=== PATIENT | female | born 1960 | race Caucasian/White ===

== ENCOUNTER → 2018-04-20 10:15 | Outpatient (CLI) | payer MEDICARE, SELFPAY ==
[2014-01-13 09:30] VITALS: BMI 30.8
[2018-04-20 10:26] LABS: Absolute Lymphocyte Count 0.81 X10^3/ul (0.83-4.51); Absolute Neutrophil Count 3.6 X10^3/uL (2.0-7.7); Basophil# 0.01 X10^3/uL; Basophil% 0.2 % (0-1); Eosinophil# 0.11 X10^3/uL; Eosinophils% 2.3 % (0-5); Hematocrit 37.8 % (37-47); Hemoglobin 11.3 g/dl (12.0-15.0); Lymphocyte # 0.81 X10^3/ul (4.0); Lymphocyte % 16.8 % (19-41); Mean Corp Hgb Conc 29.9 g/gl (32-36); Mean Corpuscular Hgb 25.5 pg (27.0-32.0); Mean Corpuscular Volume 85.1 fL (81-99); Mean Platelet Vol. 9.8 fl (6.2-12.0); Monocyte# 0.29 X10^3/uL; Neutrophil # 3.58 X10^3/uL (2.7-7.7); Neutrophil % 74.5 % (47-70); Platelet Count 150 K/mm3 (150-450); RBC Distribution Width CV 19.3 % (11.6-14.6); RBC Distribution Width SD 60.1 fl (35.1-43.9); Red Blood Count 4.44 M/mm3 (4.2-5.4); White Blood Count 4.8 K/mm3 (4.4-11.0)
[2018-04-20 10:28] LABS: POSITIVE COUNT NO; POSITIVE DIFFERENTIAL NO; POSITIVE MORPHOLOGY NO
== END ==
PROVIDERS: Referring Provider Internal Medicine Hematology & Oncology; Visit Provider Internal Medicine Hematology & Oncology
DX: C20 Malignant neoplasm of rectum (principal)
CPT/HCPCS: 85025

== ENCOUNTER → 2020-03-17 12:42 | Outpatient (CLI) | payer MEDICARE, SELFPAY ==
--- NOTE | 2020-03-17 | IMM_PTH ---
PATIENT: HUONG VALADEZ LOC: U#:[id number] AGE/SX: 64/F ROOM: RE03/17/[address]: Dr. Romie Rosado, : 1960 BED: DIS: SPEC #: [id number] RECD: 03/21/20 13:27 STATUS: SOUT REQ #: [id number] ASTRID: 03/17/20 00:[address]: Romie Rosado DEPT: IMMUNOHISTOCHEMISTRY RECD BY: Florinda Wong ENTERED: 03/21/20 13:29 SP TYPE: IMMUNO OTHR DR: No Primary Care Phys Tissues: THORACIC FLUID Procedures: RCC (add) NAPSIN A (add) Wu Ret (add) CK20 (add) CK5-6 (add) CK7 (add) CK8 (add) PETERSON-2 (add) HEP PAR (add) MACRO (add) LA (add) TTF1 (add) Vimentin (add) Pankeratin (add) P40 (add) CDX2 (add) ER (initial) PHYSICIAN & INSTITUTION [address] [address] SPECIMEN INFORMATION: Tissue Source: Thoracentesis fluid Clinical Info: Pleural effusion Specimen Number: [id number] #1 & 2 CPT code: 84098, 40794 x20 METHODOLOGY: Deparaffinized sections of prefer/formalin-fixed tissue or PAP/DQ stained slides are incubated with monoclonal/polyclonal antibodies/oligonucleotide probes. Localization is made via biotin free immunoperoxidase method. Appropriate controls are performed and reacted as expected. Results on target cell population are indicated in the following table: RESULTS: ANTIBODY / CLONE RESULT Block 1 ER (6F11) negative LA (1E2) negative AE1-3 (AE1/AE3/PCK26) positive CK7 (OV-TL12/30) negative CK8 (95pwicW15) positive CK20 (KS20.8) positive, a few cells PETERSON-2 (SP21) positive Vimentin (V9) negative Macro (HAM-56) negative TTF-1 (8G7G3/1) negative Napsin A (Rabbit Polyclonal) negative HepPar (OCh1E5) negative RCC (PN-15) negative CALRET (polyclonal) negative CK5-6 (D5 & 1684) negative P40 (BC28) negative Block 2 CK7 (OV-TL12/30) negative CK20 (KS20.8) negative PETERSON-2 (SP21) positive TTF-1 (8G7G3/1) negative CDX2 (KUH1972K) positive These tests were developed and their performance characteristics determined by [facility]. They may not have been cleared or approved by the U.S. Food and Drug Administration. The FDA has determined that such clearance or approval is not necessary. The above immunohistochemical/dualISH markers are ordered and reviewed by the Pathologist. INTERPRETATION: Thoracentesis fluid: Malignant cells present derived from metastatic non-small cell carcinoma, favor adenocarcinoma. See comment. SJ:roberto 03/24/20 Comment: IHC profile is compatible with clinical impression of colorectal primary.
--- NOTE | 2020-03-17 | FLU_PTH ---
PATIENT: HUONG VALADEZ LOC: [facility]#:[id number] AGE/SX: 64/F ROOM: RE03/17/[address]: Dr. Romie Rosado DO : 1960 BED: DIS: SPEC #: [id number] RECD: 03/17/20 14:14 STATUS: [place] #: [id number] ASTRID: 03/17/20 00:[address]: Romie Rosado DEPT: CYTOLOGY RECD BY: Dave Suarez ENTERED: 03/20/20 07:20 SP TYPE: Fluid OTHR DR: No Primary Care Phys Tissues: THORACIC FLUID Procedures: Special Stain Group II Surgery Specimen Level IV Cytospin Fluid HEADER OPERATION: Ultrasound-guided left thoracentesis PRE-OP DIAGNOSIS: Pleural effusion TISSUE SUBMITTED: Thoracentesis for cytology DIAGNOSIS CYTOLOGY Thoracentesis for cytology (cytospin and cell block): Malignant cells present derived from metastatic non-small cell carcinoma, favor adenocarcinoma. See comment. JORDAN:roberto 03/21/20 COMMENT Immunohistochemistry ([id number]) supports the above diagnosis and compatible with clinical impression of colorectal primary. This case is discussed with Dr. Rosado on 03/24/20. Case has been reviewed in consultation with Dr. Gil who concurs with the above diagnosis. IDC:AM CYTOLOGY STUDY Slides are reviewed. CYTOLOGY GROSS Received is 85 ml of dark justyn turbid fluid labeled with the patient's name and and designated per the requisition as thoracentesis. Submitted for cytology preparation including cell block x3. / rg 03/20/20 TC:0 CPT: 57350, 15234
[2020-03-17 13:22] LABS: International Normalized Ratio 1.2; Prothrombin Time (Protime)PT. 14.9 SECONDS (11.7-14.9)
--- NOTE | 2020-03-17 13:22 | US_ITS ---
PROCEDURE: ULTRASOUND GUIDED THORACENTESIS. DATE: 03/17/2020. INDICATION: Female, 59 years old. Left pleural effusion. PHYSICIAN: Kip Lyles M.D. PROCEDURE: The risks, benefits, and alternatives to the procedure were explained to the patient. The specific risks of bleeding, infection, and pneumothorax requiring chest tube insertion were discussed and accepted. Written informed consent was obtained. Ultrasonographic evaluation of the left lower pleural space was carried out. An adequate pocket was identified. The patient was placed in the sitting, upright position. The overlying skin was prepped and draped in sterile fashion. 1% lidocaine was administered subcutaneously for local anesthesia. Under ultrasound guidance, a 5 Yi thoracentesis needle/catheter system was advanced into the left posterior lower pleural fluid collection. Approximately 1000 mL of blood tinged fluid was drained. The catheter was removed, and a sterile dressing was applied. A specimen was collected and sent to the laboratory for analysis, as requested by the referring clinician. The patient tolerated the procedure well. A chest x-ray was ordered. US/Thoracentesis W US IMPRESSION: Ultrasound-guided left thoracentesis. Electronically Signed: Kip Lyles, at 14:43 EDT , Service support ,
[2020-03-17 13:23] LABS: Partial Thromboplast Time 27.3 Seconds (24.1-36.2)
[2020-03-17 13:30] VITALS: BP 126/71; BP 147/96; BP 153/100; PULSE 126; PULSE 133; RESP 26; RESP 34; RESP 35; TEMP 36.2; O2SAT 98; O2SAT 99
--- NOTE | 2020-03-17 14:05 | RAD_ITS ---
STUDY: X-RAY CHEST REASON FOR EXAM: Female, 59 years old. POST THORACENTESIS TECHNIQUE: AP portable upright. COMPARISON: None. FINDINGS: The patient is status post left thoracentesis. There is no evidence pneumothorax. Bilateral pulmonary nodules more prominent in the right chest. RAD/Chest Insp/Exp 2 View IMPRESSION: No evidence of pneumothorax on the post left thoracentesis. Bilateral pulmonary nodules worse on the right side Electronically Signed: iKp Lyles, at 9:04 EDT , Service support ,
== END ==
PROVIDERS: Referring Provider Internal Medicine Hematology & Oncology; Visit Provider Internal Medicine Hematology & Oncology
DX: J90 Pleural effusion, not elsewhere classified (principal); C20 Malignant neoplasm of rectum; I81 Portal vein thrombosis; J93.9 Pneumothorax, unspecified; C78.7 Secondary malignant neoplasm of liver and intrahepatic bile duct
CPT/HCPCS: 32555; 36415; 71046; 85610; 85730; 88108; 88305; 88313; 88341; 88342

== ENCOUNTER 2020-04-09 17:19 | Inpatient (IN) | payer MEDICARE, SELFPAY ==
[2020-04-09] VITALS (16 sets, daily range): BP systolic 105–131; BP diastolic 52–93; PULSE 120–149; RESP 24–42; TEMP 36.1–37; O2SAT 95–99; BMI 29.1; BMI 29.3; BMI 29.2
--- NOTE | 2020-04-09 17:29 | EKG12_ITS ---
Test Reason : WEAKNESS Blood Pressure : / mmHG Vent. Rate : 147 BPM Atrial Rate : 147 BPM P-R Int : 126 ms QRS Dur : 084 ms QT Int : 268 ms P-R-T Axes : 045 021 048 degrees QTc Int : 419 ms Sinus tachycardia Otherwise normal ECG Confirmed by CHRISTIN ROCHE, SEAN ([id number]), scientific publications editor TERRENCE BOUDREAUX ([id number]) on 04/10/2020 2:05:06 PM Referred By: AVELINA Confirmed By:SEAN WALLER MD
--- NOTE | 2020-04-09 17:30 | CT_ITS ---
STUDY: CTA CHEST REASON FOR EXAM: Female, 59 years old. SOB X 1 MONTH, DYSPNEA, CURRENT CHEMO FOR RECTAL CA RADIATION DOSAGE (If Supplied By Facility): CTDIvol = ( 11.95 ) mGy, DLP = ( 432.99 ) mGycm TECHNIQUE: The examination was performed with the intravenous administration of IV 100mL Isovue-370. Post-processing of the angiographic images was performed, with multiplanar reformation and 3D reconstruction. Individualized dose optimization techniques were used for this CT. COMPARISON: None. FINDINGS: Normal enhancement of the main pulmonary artery and right and left pulmonary arteries. Normal enhancement of the bilateral peripheral pulmonary arteries. There is no demonstrated pulmonary embolism. Normal thoracic aorta and visualized great vessels. There is no demonstrated aortic dissection. Normal heart and pericardium. Moderate adenopathy of the middle mediastinum with Station 7 subcarinal lymph node measuring 2.6 x 2.7 cm. Right hilar adenopathy measures 1.9 x 2.8 cm on image 155 of series 2. Left hilar adenopathy also identified although less conspicuous as compared to the right. A right paratracheal can mass measures 3.0 x 2.4 cm. Normal hilar regions. There are multiple noncalcified nodules and multiple pulmonary lobes. The largest single nodule is in the right lower lobe measuring 2.0 x 2.3 cm. Some of the nodules extend to the pleural surface. Left larger than right pleural effusions are identified with compressive atelectasis. Normal chest wall structures. There are degenerative changes of thoracic spine. Mild ascites of the upper abdomen incompletely visualized and could account for some omental reticulation, although the latter is nonspecific and can be associated with omental metastasis. Upper abdominal adenopathy is partially visualized. There are multiple masses of the left adrenal gland measuring up to 2.9 cm. There are multiple hepatic masses in the right more than left hepatic lobe with the largest lesion measuring up to 10.5 cm. Some of the masses demonstrate coarse and curvilinear calcifications, incompletely visualized. CT/CTA Chest W/WO Contrast IMPRESSION: 1. No central or segmental pulmonary embolism. 2. Multiple pulmonary nodules/metastases, mediastinal/bilateral hilar adenopathy, hepatic masses, upper abdominal adenopathy, left adrenal gland mass worrisome for metastasis. 3. Left larger than right pleural effusions. Mild ascites. Omental stranding could be related to ascites versus omental metastasis (incompletely visualized). 4. Some of the liver masses demonstrate calcification and can be related to mucinous adenocarcinoma versus chemoembolization. 5. Comparison to prior imaging studies highly recommended to assess for interval change. Electronically Signed: Roberto Zelaya MD (Brooks) at 19:06 EST , Service support ,
--- NOTE | 2020-04-09 17:37 | ED.VIS.GEN ---
History of Present Illness Chief Complaint: Weakness Informant: Patient Onset: Weeks, Month(s) Context: Gradual Onset Timing: Continuous Quality: Dyspnea Location: Respiratory Current Severity: Moderate Maximum Severity: Severe Worsened by: Activity Relieved by: Nothing Associated Symptoms: Diarrhea Narrative: Patient is a 59-year-old woman who was told she had terminal colon/rectal cancer 6 years ago. She states she had a life expectancy of 2 months at that time. She denies black or maroon stool. She states her stool has the color of oatmeal. She denies nausea or vomiting. She reports increased shortness of breath. She had a recent long distance trip and returned on Friday. She denies fever, chills night sweats. She denies rhinorrhea, congestion or postnasal drainage. Denies sore throat. She denies earache, decreased hearing or drainage from her ears. She denies cough. She denies history of PE or DVT. She states she had a thoracentesis performed in the past left side. She has never had a paracentesis. She denies dysuria, frequency, urgency or hematuria. She was unaware that her left lower extremity is swollen. Prior similar symptoms: No Recent Illness/Hospitalization: No - Past Medical History (1) Rectal cancer Status: Acute Past Medical History - Allergies and Home Meds Allergies/Adverse Reactions: Allergies No Known Allergies Allergy (Verified 04/09/20 17:24) Primary Care Physician: Care Physician,No Primary [Primary Care Provider] - Prior records reviewed: Yes Lives: Spouse/ Significant Other Smoking Status: Never smoker Alcohol: None Drugs: None Review of Systems General: Reports: Malaise. Denies: Chills, Fever, Subjective, Sweats, Weight loss Eyes: Denies: Visual changes - bilaterally, Blurred Vision - bilaterally ENT: Denies: Bilateral ear pain, Rhinorrhea, Sore throat Cardiovascular: Denies: Chest pain, Palpitations Respiratory: Reports: Dyspnea, Dyspnea on exertion. Denies: Cough, Sputum, Orthopnea, Paroxysmal nocturnal dyspnea Gastrointestinal: Denies: Abdominal pain, Nausea, Vomiting, Diarrhea Genitourinary: Denies: Dysuria, Hematuria, Frequency Musculoskeletal: Reports: Swelling. Denies: Myalgias, Arthralgias, Neck pain, Back pain, Extremity Pain Skin: Denies: Rash, Wounds Neurological: Denies: Headache, Weakness Endocrine: Denies: Polyuria, Polydipsia Hematologic: Reports: Easy bruising, Easy bleeding - Patient states she is on no anticoagulant. Physical Exam Vital Signs/Narrative: Vital Signs Temp Pulse Resp BP Pulse Ox 04/09/20 17:20 97.0 F L 149 H 36 H 115/52 L 98 Inital Vital Signs reviewed: Yes General: Well nourished, Well developed, Acute Distress Head: Normocephalic, Atraumatic Eyes: Perrl, EOMI. Negative for: Scleral icterus ENT: No rhinorrhea. Negative for: Moist mucous membranes Neck: Supple, Nontender, No lymphadenopathy, No JVD Cardiovascular: Regular rhythm, No murmurs, Normal S1, Normal S2, Tachycardia Respiratory: CTA bilaterally, Chest nontender. Negative for: No distress Abdomen: Soft, Nontender, Nondistended, Normal bowel sounds, Ventral hernia - Midline supraumbilical hernia that is reducible Rectal: Deferred Back: Nontender Extremities: Nontender, - - Swelling of the left leg compared to the right. Bruising is noted.. Negative for: No edema Skin: No rash, No Trauma, Pallor. Negative for: Normal color, Cyanosis, Diaphoresis, Jaundice Neurological: Alert, Oriented x3, Cranial nerves II-XII grossly intact, Normal Strength Psychological: Normal affect Diagnostic/Tx/Re-eval Impressions Chest CTA 04/09/20 17:30 IMPRESSION: 1. No central or segmental pulmonary embolism. 2. Multiple pulmonary nodules/metastases, mediastinal/bilateral hilar adenopathy, hepatic masses, upper abdominal adenopathy, left adrenal gland mass worrisome for metastasis. 3. Left larger than right pleural effusions. Mild ascites. Omental stranding could be related to ascites versus omental metastasis (incompletely visualized). 4. Some of the liver masses demonstrate calcification and can be related to mucinous adenocarcinoma versus chemoembolization. 5. Comparison to prior imaging studies highly recommended to assess for interval change. Electronically Signed: Roberto Zelaya MD ([place]) at 19:06 EST , Service support , 04/09/20 17:30 CTA Chest W/WO Contrast [CT] Stat Laboratory Results 04/09/20 04/09/20 04/09/20 17:50 17:50 17:50 WBC 49.0 H* RBC 4.47 Hgb 11.6 L Hct 38.7 MCV 86.6 MCH 26.0 L MCHC 30.0 L RDW Std Deviation 69.0 H RDW Coeff of Bautista 21.9 H Plt Count 556 H MPV 9.0 Immature Gran % (Auto) 3.100 H Neut % (Auto) 92.9 H Lymph % (Auto) 1.0 L [place] % (Auto) 3.0 Eos % (Auto) 0.0 Baso % (Auto) 0.0 Absolute Neuts (auto) 45.5 H Absolute Lymphs (auto) 0.51 L Nucleated RBC % 0 Differential Comment SEE COMMENTS Diff Path Review May foll Platelet Estimate MOD INC RBC Morphology N CHROM Anisocytosis RARE PT 16.2 H INR 1.4 APTT 30.7 Sodium 134 L Potassium 5.5 H Chloride 102 Carbon Dioxide 20.0 L Anion Gap 12 BUN 23 H Creatinine 1.04 H Estim Creat Clear Calc 51.12 Est GFR (MDRD) Af Amer 69 Est GFR (MDRD) Non-Af 57 L BUN/Creatinine Ratio 22.1 H Glucose 116 H Lactic Acid Calcium 8.6 Troponin I < 0.015 B-Natriuretic Peptide 04/09/20 04/09/20 17:50 18:50 WBC RBC Hgb Hct MCV MCH MCHC RDW Std Deviation RDW Coeff of Bautista Plt Count MPV Immature Gran % (Auto) Neut % (Auto) Lymph % (Auto) Sweet [place] % (Auto) Eos % (Auto) Baso % (Auto) Absolute Neuts (auto) Absolute Lymphs (auto) Nucleated RBC % Differential Comment Diff Path Review Platelet Estimate RBC Morphology Anisocytosis PT INR APTT Sodium Potassium Chloride Carbon Dioxide Anion Gap BUN Creatinine Estim Creat Clear Calc Est GFR (MDRD) Af Amer Est GFR (MDRD) Non-Af BUN/Creatinine Ratio Glucose Lactic Acid 4.0 H* Calcium Troponin I B-Natriuretic Peptide 53.1 Elevated white count, lactate of 4 tachypnea tachycardia patient has symptoms concerning for sepsis. CT reveals ascites was bilateral pleural effusion left greater than right. This may explain her dyspnea. There is no evidence of pulmonary embolus. Once I was made aware of the lactate and white count blood cultures were obtained and she initially was treated with Rocephin since she had respiratory symptoms. After the CT was reviewed by me interpreted radiologist she was treated with Zosyn. Patient was reassessed she does have evidence of a fluid wave. There is mild tenderness but no obvious peritoneal findings. Suspect patient may have spontaneous bacterial peritonitis. In light of the amount of pathology that is noted on the scan a diagnostic paracentesis was not performed. - Medical Decision Making With history of cancer, recent travel tachycardia, tachypnea and left lower extremity swelling concern patient has pulmonary embolus. Appropriate blood work was ordered to assess renal function, electrolytes especially since she reports diarrhea. CBC was obtained since she appears pale. Since breath sounds are noted bilaterally with no rales, rhonchi and no dullness to percussion, will obtain CTA of the chest to evaluate for pulmonary embolus. - Critical Care Time Critical care time (excluding procedures): 30-74 minutes - Care time 34 minutes this included obtaining history, physical, review of prior records, documentation, interpretation of laboratory results and obtaining further diagnostic tests. Treat for sepsis. 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
[2020-04-09 18:21] LABS: Absolute Lymphocyte Count 0.51 X10^3/uL (0.83-4.51); Absolute Neutrophil Count 45.5 X10^3/uL (2.0-7.7); Basophil# 0.02 X10^3/uL; Eosinophil# 0.02 X10^3/uL; Hematocrit 38.7 % (37-47); Hemoglobin 11.6 g/dL (12.0-15.0); Lymphocyte # 0.51 X10^3/ul (4.0); Mean Corpuscular Volume 86.6 fL (81-99); Monocyte# 1.48 X10^3/uL; NRBC Flagged by Analyzer 0 % (0-5); Neutrophil # 45.48 X10^3/uL (2.7-7.7); Neutrophil % 92.9 % (47-70); POSITIVE COUNT YES; POSITIVE DIFFERENTIAL YES; POSITIVE MORPHOLOGY YES; Platelet Count 556 K/mm3 (150-450); RBC Distribution Width CV 21.9 % (11.6-14.6); Red Blood Count 4.47 M/mm3 (4.2-5.4)
[2020-04-09 18:29] LABS: International Normalized Ratio 1.4; Prothrombin Time (Protime)PT. 16.2 SECONDS (11.7-14.9)
[2020-04-09 18:30] LABS: Anion Gap 12 (5-15); BUN 23 mg/dL (7-18); BUN/Creat Ratio 22.1 RATIO (10-20); Calcium,Total 8.6 mg/dL (8.5-10.1); Chloride 102 mmol/L (98-107); Creatinine, Serum 1.04 mg/dL (0.55-1.02); EST Glomerular Filtration Rate 57 mL/min (>60); Est Glom Filt Rate - Afr Amer 69 mL/min (>60); Estimated Creatinine Clearance 51.12 ml/min; Glucose 116 mg/dL (74-106); Partial Thromboplast Time 30.7 Seconds (24.1-36.2); Potassium 5.5 mmol/L (3.5-5.1); Sodium Level 134 mmol/L (136-145)
[2020-04-09 18:37] LABS: Differential Indicated SCAN CRITERIA MET
[2020-04-09 19:25] LABS: Differential Comment SEE COMMENTS
[2020-04-09 19:26] LABS: Anisocytosis RARE; Platelet Estimate MOD INC (ADEQ); Red Cell Morphology N CHROM NORMAL (NORM C&C)
[2020-04-09 19:42] LABS: BNP,B-Type NATRIURETIC PEPTIDE 53.1 pg/mL (0-100)
[2020-04-09] MEDS: 0.9% Normal Saline 1,000 ML 999 ML IV ×3 (20:00→22:28)
--- NOTE | 2020-04-09 20:05 | HP.PCM_ITS ---
Problem List (1) Systemic inflammatory response syndrome (SIRS) Status: Acute (2) Lactic acidosis Status: Acute (3) Bilateral pleural effusion Status: Acute (4) Metastatic cancer Status: Chronic Qualifiers: Area of secondary neoplastic involvement: unspecified site Qualified Code(s): C79.9 - Secondary malignant neoplasm of unspecified site (5) Rectal cancer Status: Chronic History of Present Illness Date of Admission: 04/09/20 Chief Complaint: Dyspnea, worsening, fatigue and malaise. The patient is a 59 y/o F w/ PMHx: CKD stage III, Metastatic Renal Cancer following w/ Dr. Rosado who presents to the [facility] ED on 04/09/20 with increased dyspnea, worse with exertion with concurrent malaise, fatigue prompting ED presentation. Patient notes recent increased stools not specifically diarrhea with associated nausea or emesis but does complain of some mild discomfort on evaluation in the emergency room with abdominal examination. Patient noted recent long trip also and there was concern for possible lung clot and upon ED presentation left lower extremity was noted to be mildly edematous. Patient denies any recent fever, chills, congestion, rhinorrhea, sore throat, cough or any recent ill Covid contacts. Patient has had prior thoracentesis on the left side on 03/17/2020 which was significant for malignant cells derived from metastatic non-small cell carcinoma favorable towards adenocarcinoma per pathology report. Work-up in the ED included T 97, heart rate initially 149, BP 115/52, respiratory rate 36, 90% on room air, CBC with WBC 49, hemoglobin 11.6, platelet 556 with left shift and lymphopenia concurrently, coags with PT 16.2, INR 1.4, PTT 30.7, BMP with sodium 134, potassium 5.5, carbon oxide 20, BUN/creatinine 23/1.04, glucose 116, troponin less than 0.015, lactic acid 4.0, BNP 53.1, blood culture x2 pending per ED, CTA chest with no central or segmental pulmonary embolism, multiple pulmonary nodules/metastases, mediastinal/bilateral hilar adenopathy, hepatic masses, upper abdominal adenopathy, left adrenal gland mass worrisome for metastases, left larger than right pleural effusions with mild ascites, omental stranding possibly ascites versus omental metastases, some liver masses with calcification possibly related to mucinous adenocarcinoma versus chemoembolization with significant change from prior imaging. In the ED patient administered NS, zosyn. Past Medical History Past Medical History (Chronic Problems): Chronic Problems Rectal cancer (Chronic) Metastatic cancer (Chronic) Allergies No Known Allergies Allergy (Verified 04/09/20 17:24) Home Medications: Ambulatory Orders Medication Instructions Recorded Multivitamins,Therapeutic 1 tab PO DAILY 01/12/14 [Multivitamin] Dicyclomine HCl [Bentyl] 10 mg PO Q6H PRN 04/09/20 Oxycodone HCl/Acetaminophen 1 tab PO Q6H PRN PRN 04/09/20 [Percocet 5/325] Regorafenib [Stivarga] 40 mg PO DAILY 04/09/20 Surgical History: - - Tonsillectomy. 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 Smoking Status: Never smoker Tobacco Use: Non-smoker Alcohol: None Drugs: None - *Family History Maternal History Items: Cancer - Mother with a history of colon cancer. Paternal History Items: Heart Disease Review of Systems Constitutional: Reports: Anorexia, Malaise, Weakness, Fatigue. Denies: Chills, Fever, Weight Change HEENT: Denies: Head Aches, Sinus Congestion, Sinus Drainage Cardiovascular: Denies: Chest Pain, Palpitations Respiratory: Reports: Cough, Shortness of Breath, Shortness of breath at rest, Shortness of breath upon exertion. Denies: Sputum production, Wheezing Gastrointestinal: Reports: Abdominal Pain, Nausea. Denies: Constipation, Diarrhea, Vomiting Genitourinary: Denies: Dysuria Musculoskeletal: Reports: Joint Pain, Muscle pain. Denies: Joint Tenderness Skin: Denies: Rash, Wounds Neurological: Denies: Numbness, Tingling, Focal weakness Psychiatric: Denies: Anxiety, Depression, Homicidal Ideations, Suicidal Ideations Hematologic/ Lymphatic: Reports: Anemia. Denies: Easy Bruising, Easy Bleeding VTE Information - Inpt Only VTE Present on Admission: No VTE Mechan Device Prophylaxis: SCD's VTE Pharm Prophylaxis ordered?: No Reason prophylaxis not ordered:: Medical Contraindication - Hold for thoracentesis. Patient Problems: Active and Suspected Problems Systemic inflammatory response syndrome (SIRS) (Acute) Bilateral pleural effusion (Acute) Ascites, malignant (Acute) Malignant neoplasm of rectum metastatic to liver (Acute) Lactic acidosis (Acute) Subjective: Laying in the ED bed, fatigued and ill-appearing, tachypnea present, ongoing tachycardia. Objective: Physical Examination: General: awake, alert, oriented x 3 and cooperative, seated upright in the ED bed, fatigued and ill-appearing. Skin: normal color, turgor, no icterus, cyanosis. HEENT: AT/NC, EOMI, PERRLA, dry MM, no carotid bruits or JVD noted. Lungs: Diminished breath sounds, right greater than left, increased respiratory rate, some accessory muscle usage noted, no obvious rales, rhonchi or wheezing. Heart: Tachycardic with regular rhythm; no gallop, rub audible. Abdomen: soft, mildly distended which she notes is stable, some discomfort to palpation in all quadrants, some firmness in the right upper quadrant, distant normal bowel sounds, HM. Extremities: no cyanosis, clubbing, or edema. Neurological: patient awake, alert, oriented as noted; cognitive function intact; pupils equally reactive to light and accomodation; cranial nerves II-XII grossly normal, moving all 4 extremities, no focal deficits, strength severely global decrease secondary to acute presentation. Psychiatric: affect appears fatigued, ill-appearing, no acute evidence of depressive or anxiety feelings. - Physical Exam Vitals/I&O's: Vital Signs Temp Pulse Resp BP Pulse Ox 98.3 F 133 H 26 H 105/93 H 96 04/09/20 18:53 04/09/20 20:01 04/09/20 20:01 04/09/20 20:01 04/09/20 20:01 Oxygen Delivery Method Room Air Weight: 176 lb 9.444 oz Body Mass Index (BMI) 29.3 Intake and Output for Last 24 Hours 04/07/20 04/08/20 04/09/20 23:59 23:59 23:59 Intake Total 290 / 290 Balance 290 / 290 Laboratory Results 04/09/20 17:50: WBC 49.0 H*, RBC 4.47, Hgb 11.6 L, Hct 38.7, MCV 86.6, MCH 26.0 L, MCHC 30.0 L, RDW Std Deviation 69.0 H, RDW Coeff of Bautista 21.9 H, Plt Count 556 H, MPV 9.0, Immature Gran % (Auto) 3.100 H, Neut % (Auto) 92.9 H, Lymph % (Auto) 1.0 L, Edgar % (Auto) 3.0, Eos % (Auto) 0.0, Baso % (Auto) 0.0, Absolute Neuts (auto) 45.5 H, Absolute Lymphs (auto) 0.51 L, Nucleated RBC % 0, Differential Comment SEE COMMENTS, Diff Path Review May foll, Platelet Estimate MOD INC, RBC Morphology N CHROM, Anisocytosis RARE 04/09/20 17:50: PT 16.2 H, INR 1.4, APTT 30.7 04/09/20 17:50: Sodium 134 L, Potassium 5.5 H, Chloride 102, Carbon Dioxide 20.0 L, Anion Gap 12, BUN 23 H, Creatinine 1.04 H, Estim Creat Clear Calc 51.12, Est GFR (MDRD) Af Amer 69, Est GFR (MDRD) Non-Af 57 L, BUN/Creatinine Ratio 22.1 H, Glucose 116 H, Calcium 8.6, Troponin I < 0.015 04/09/20 17:50: B-Natriuretic Peptide 53.1 04/09/20 18:50: Lactic Acid 4.0 H* Current Medications Piperacillin Sod/Tazobactam (Sod 4.5 gm/ Sodium Chloride) 100 mls @ 200 mls/hr IV X1 ONE Stop: 04/09/20 20:11 Last Admin: 04/09/20 20:00 Dose: 200 mls/hr Documented by: Sodium Chloride () 1,000 mls @ 999 mls/hr IV .Q1H1M SAM; Protocol Stop: 04/09/20 22:25 Last Admin: 04/09/20 20:00 Dose: 999 mls/hr Documented by: Assessment/Plan All Active Problems Systemic inflammatory response syndrome (SIRS) (Acute) Bilateral pleural effusion (Acute) Ascites, malignant (Acute) Malignant neoplasm of rectum metastatic to liver (Acute) Lactic acidosis (Acute) The patient is a 59 y/o F w/ PMHx: CKD stage III, Metastatic Renal Cancer following w/ Dr. Rosado who presents to the [facility] ED on 04/09/20 with increased dyspnea, worse with exertion with concurrent malaise, fatigue prompting ED presentation. Patient notes recent increased stools not specifically diarrhea wi th associated nausea or emesis but does complain of some mild discomfort on evaluation in the emergency room with abdominal examination. 1. SIRS with Lactic Acidosis, Unclear Etiology: Patient presentation concerning for possible infection with significant lactic acidosis, tachycardia, leukocytosis with left shift therefore to be cautious given appearance per discussion with ED physician will admit to the ICU, maintain on telemetry monitoring, request laminator preforms involvement, pending oncology evaluation, trend LA, judiciously hydrate, maintain on broad-spectrum antibiotic therapy with vancomycin and Zosyn with de-escalation once appropriate, continue planned thoracentesis as noted #2, repeat CBC, CMP in a.m., obtain urinalysis. CTPA with no obvious infiltrate. Blood culture x2 pending per ED. 2. Dyspnea, multifactorial secondary to Metastatic cancer (#3) and recurrent L sided Pleural effusion: Recent 03/17/2020 left-sided thoracentesis, recurrent effusion, positive for malignant cells at that time, will repeat thoracentesis is likely will assist patient with recent complaint of recurrent dyspnea, maintain n.p.o. status after midnight, will send for culture as possibly related with #1. 3. Metastatic colon cancer: CTA chest with no central or segmental pulmonary embolism, multiple pulmonary nodules/metastases, mediastinal/bilateral hilar adenopathy, hepatic masses, upper abdominal adenopathy, left adrenal gland mass worrisome for metastases, left larger than right pleural effusions with mild ascites, omental stranding possibly ascites versus omental metastases, some l iver masses with calcification possibly related to mucinous adenocarcinoma versus chemoembolization with significant change from prior imaging. Abdominal examination with some firmness to the right upper quadrant and mild discomfort therefore will obtain CT abdomen and pelvis although will be without contrast given already recent IV usage but suspect significantly worsening metastatic disease. Dr. Rosado consulted and pending. Will request magnesium and phosphorus levels and supplement if appropriate. We will continue patient home Stivarga regimen. 4. Elevated LFTs: Admission total bilirubin 1.20, direct bilirubin 0.75, AST/ALT 48/20, alk phos 654, pending CT abdomen and pelvis but do suspect worsening metastatic disease as likely etiology as well as acute presentation #1. We will plan repeat CMP in a.m. 5. Chronic Kidney Disease Stage III: Admission BUN/Cr 23/1.04, baseline renal function similar, repeat BMP in AM. 6. Hyperkalemia, mild: Admission potassium 5.5, no evidence of analysis, judiciously hydrating with repeat CMP in a.m. 7. Chronic anemia: Admission hemoglobin 11.6, previously 11, stable, trend. 8. DVT prophylaxis: SCDs, hold chemoprophylaxis for planned a.m. thoracentesis. 9. CODE status: Patient RAS is Michael Portillo one of her sons and living will is not in place per her report. Discussed CODE status at length including difference between FULL code, DNR-CCA and DNR-CC status. Following discussions about the differences in these status, requested DNR CCA, no intubation status. Patient is a [employer] and will not take any blood products. Advanced Care Planning Face to Face Time: 16 minutes. Inpatient E&M: 00917 Init Hosp L3 Procedures: [id number] Advncd Care Plan 30 Min
[2020-04-09 22:31] LABS: AST(SGOT) 48 U/L (15-37); Alanine Aminotransfer ALT/SGPT 20 U/L (13-56); Albumin, Serum 1.7 g/dL (3.2-5.0); Alkaline Phosphatase 654 U/L (45-117); Bilirubin, Direct 0.75 mg/dL (0.00-0.30); Globulin 5.1 g/dL (2.2-4.2); Lipase 17 U/L (73-393); Magnesium 2.3 mg/dL (1.6-2.6); Protein, Total 6.8 g/dL (6.4-8.2)
[2020-04-09 22:35] LABS: Phosphorus 3.6 mg/dL (2.5-4.9)
[2020-04-09 22:57] LABS: Reflex Lactate? Y
[2020-04-09] MEDS: Morphine 2 MG/ML Syringe IV (23:15)
[2020-04-09] MEDS: 0.9% Normal Saline 1,000 ML 125 ML IV (23:22)
--- NOTE | 2020-04-09 23:35 | PCM.RX.CS ---
Consult Pharmacy has been consulted to manage selected antiobiotic: Vancomycin Type of Consult: New start Suspected Infection: Sepsis, Pneumonia Labs: Sodium 134 mmol/L (136-145) L 04/09/20 17:50 Potassium 5.5 mmol/L (3.5-5.1) H 04/09/20 17:50 Chloride 102 mmol/L (98-107) 04/09/20 17:50 Carbon Dioxide 20.0 mmol/L (21.0-32.0) L 04/09/20 17:50 Anion Gap 12 (5-15) 04/09/20 17:50 BUN 23 mg/dL (7-18) H 04/09/20 17:50 Creatinine 1.04 mg/dL (0.55-1.02) H 04/09/20 17:50 Est GFR (MDRD) Af Amer 69 mL/min (>60) 04/09/20 17:50 Est GFR (MDRD) Non-Af 57 mL/min (>60) L 04/09/20 17:50 BUN/Creatinine Ratio 22.1 RATIO (10-20) H 04/09/20 17:50 Glucose 116 mg/dL (74-106) H 04/09/20 17:50 Goal Trough: 15-20 mcg/mL Pharmacy Plan for Drug Dosing: Pharmacy Service will continue to monitor and adjust dosing as required. Medications Vancomycin HCl 750 mg/ Sodium (Chloride) 265 mls @ 250 mls/hr IV Q12H SAM Vancomycin HCl 2,000 mg/ (Sodium Chloride) 540 mls @ 250 mls/hr IV X1 ONE Stop: 04/10/20 00:39 Last Admin: 04/09/20 22:42 Dose: 250 mls/hr Documented by: Follow-Up Labs: Trough Vancomycin Labs to be done on [date and time ordered]: 04/11 @ 1032
[2020-04-09 23:37] LABS: Color, Urine Yellow (Yellow); Glucose, Dipstick Normal (Normal); Ketone-Dipstick Negative (Negative); Leukocyte Esterase-Dipstick 100 /ul (Negative); Mucous, Urine 0 SEEN /hpf (<or=2+); Nitrite-Dipstick Negative (Negative); Occult Blood-Urine 10 /ul (Negative); Protein-Dipstick 30 mg/dl (Negative); Specific Gravity, Urine 1.005 (1.002-1.030); Urine Bilirubin Dipstick Negative (Negative); Urine Clarity Clear (Clear); Urine Urobilinogen 1 mg/dl (Normal)
[2020-04-09 23:48] LABS: Bacteria 1+ /hpf (None Seen); Red Blood Cells-Urine 0-5 SEEN /hpf (0-5); Squamous Epithelial Cells - UA 5-10 SEEN /hpf (5-10); Transitional Epithelial - Ur 0-5 SEEN /hpf (0-5); White Blood Cells 10-25 SEEN /hpf (0-5)
[2020-04-09 23:54] LABS: Procalcitonin 1.18 ng/mL (0.00-0.09)
[2020-04-10] VITALS (31 sets, daily range): BP systolic 101–159; BP diastolic 70–117; PULSE 123–138; RESP 23–44; TEMP 36.1–37.8; O2SAT 96–100
[2020-04-10] LABS: ALB/GLOB Ratio 0.4 RATIO (0.9-2.4); Globulin 3.5 g/dL (2.2-4.2); LDH 639 U/L (84-246); Protein, Total 4.8 g/dL (6.4-8.2)
--- NOTE | 2020-04-10 | IMM_PTH ---
PATIENT: HUONG VALADEZ LOC: ICU U#:[id number] AGE/SX: 59/F ROOM: [place] [address] RE04/09/[address]: Dr. Franklin Mason DO : 1960 BED: 1 DIS: 04/11/2020 SPEC #: [id number] RECD: 04/11/20 13:21 STATUS: SOUMaria Luisa REQ #: [id number] ASTRID: 04/10/20 00:[address]: Franklin Mason DEPT: IMMUNOHISTOCHEMISTRY RECD BY: Florinda Wong ENTERED: 04/11/20 13:24 SP TYPE: IMMUNO OTHR DR: MD Dr. Harmeet Tabor, DO Dr. Daniel Greenwood, MD Dr. Romie Turner Dr., DO No Primary Care Phys Tissues: PARACENTESIS FLUID Procedures: RCC (add) NAPSIN A (add) Wu Ret (add) CK20 (add) CK5-6 (add) CK7 (add) CK8 (add) PETERSON-2 (add) HEP PAR (add) MACRO (add) WI (add) TTF1 (add) Vimentin (add) Pankeratin (add) P40 (add) CDX2 (add) ER (initial) PHYSICIAN & [place] [address] SPECIMEN INFORMATION: Tissue Source: Paracentesis fluid Clinical Info: Ascites Specimen Number: [id number] CPT code: 66148, 09698 x16 METHODOLOGY: Deparaffinized sections of prefer/formalin-fixed tissue or PAP/DQ stained slides are incubated with monoclonal/polyclonal antibodies/oligonucleotide probes. Localization is made via biotin free immunoperoxidase method. Appropriate controls are performed and reacted as expected. Results on target cell population are indicated in the following table: RESULTS: ANTIBODY / CLONE RESULT ER (6F11) negative WI (1E2) negative AE1-3 (AE1/AE3/PCK26) positive CK7 (OV-TL12/30) negative CK8 ([id number]) positive CK20 (KS20.8) positive, rare cells PETERSON-2 (SP21) positive CDX2 ([id number]) positive Vimentin (V9) negative Macro (HAM-56) negative TTF-1 (8G7G3/1) negative Napsin A (Rabbit Polyclonal) negative HepPar (OCh1E5) negative RCC (PN-15) negative CALRET (polyclonal) negative CK5-6 (D5 & 1684) negative P40 (BC28) negative These tests were developed and their performance characteristics determined by [facility]. They may not have been cleared or approved by the U.S. Food and Drug Administration. The FDA has determined that such clearance or approval is not necessary. The above immunohistochemical/dualISH markers are ordered and reviewed by the Pathologist. INTERPRETATION: Paracentesis fluid: Malignant cells present derived from metastatic non-small cell carcinoma, favor adenocarcinoma. See comment. JORDAN:roberto 04/12/20 Comment: IHC profile is compatible with clinical impression of colorectal primary.
[2020-04-10 00:07] LABS: Lactic Acid 2.5 mmol/L (0.4-1.9)
[2020-04-10] MEDS: 0.9% Normal Saline 1,000 ML 999 ML IV (01:44)
[2020-04-10 02:20] LABS: M R Staph aureus DNA By PCR Negative (Negative); Probe Check PASS; Specimen Processing Control PASS
[2020-04-10] MEDS: oxyCODONE 5 MG Tablet PO (03:00)
[2020-04-10 04:23] LABS: Absolute Lymphocyte Count 0.36 X10^3/uL (0.83-4.51); Absolute Neutrophil Count 43.6 X10^3/uL (2.0-7.7); Basophil# 0.16 X10^3/uL; Basophil% 0.3 % (0-1); Eosinophils% 0.2 % (0-5); Hematocrit 34.4 % (37-47); Hemoglobin 10.2 g/dL (12.0-15.0); Lymphocyte # 0.36 X10^3/ul (4.0); Lymphocyte % 0.8 % (19-41); Mean Corp Hgb Conc 29.7 g/dL (32-36); Mean Corpuscular Volume 87.5 fL (81-99); Monocyte# 1.28 X10^3/uL; Monocyte% 2.8 % (0-10); NRBC Flagged by Analyzer 0 % (0-5); Neutrophil # 43.64 X10^3/uL (2.7-7.7); Neutrophil % 93.9 % (47-70); POSITIVE COUNT YES; POSITIVE DIFFERENTIAL YES; POSITIVE MORPHOLOGY YES; Platelet Count 403 K/mm3 (150-450); RBC Distribution Width SD 70.1 fl (35.1-43.9); Red Blood Count 3.93 M/mm3 (4.2-5.4)
[2020-04-10 04:29] LABS: Differential Indicated SCAN CRITERIA MET; White Blood Count 46.5 K/mm3 (4.4-11.0)
[2020-04-10 04:57] LABS: ALB/GLOB Ratio 0.3 RATIO (0.9-2.4); AST(SGOT) 46 U/L (15-37); Alanine Aminotransfer ALT/SGPT 18 U/L (13-56); Albumin, Serum 1.4 g/dL (3.2-5.0); Alkaline Phosphatase 518 U/L (45-117); Anion Gap 10 (5-15); BUN 18 mg/dL (7-18); BUN/Creat Ratio 28.3 RATIO (10-20); Chloride 110 mmol/L (98-107); Creatinine, Serum 0.64 mg/dL (0.55-1.02); EST Glomerular Filtration Rate 101 mL/min (>60); Est Glom Filt Rate - Afr Amer 122 mL/min (>60); Estimated Creatinine Clearance 83.06 ml/min; Globulin 4.1 g/dL (2.2-4.2); Glucose 90 mg/dL (74-106); Potassium 4.6 mmol/L (3.5-5.1); Protein, Total 5.5 g/dL (6.4-8.2); Sodium Level 137 mmol/L (136-145)
[2020-04-10 05:54] LABS: Differential Comment SCANNED; Hypochromasia RARE; Ovalocyte RARE; Stomatocyte RARE
--- NOTE | 2020-04-10 05:55 | RAD_ITS ---
HISTORY: SOB ADDITIONAL HISTORY: None provided. EXAMINATION/TECHNIQUE: XR Chest 1 View AP/PA Number of images including paperwork: 1 COMPARISON: 03/07/2020. CT 04/09/2020 FINDINGS: LUNGS AND PLEURA: Bilateral pleural effusions, small on the right and moderate on the left. Associated left basilar atelectasis versus infiltrate. Bilateral lung nodules consistent with metastases. CARDIAC SILHOUETTE: Stable. MEDIASTINUM AND CASI: Right paratracheal fullness consistent with adenopathy has increased compared to 03/17/2020. UPPER ABDOMEN: Unremarkable. SKELETON AND SOFT TISSUES: No acute skeletal findings. OTHER DEVICES AND HARDWARE: None. RAD/Chest 1 View (Portable) IMPRESSION: 1. Bilateral pleural effusions. 2. Left basilar atelectasis versus infiltrate. 3. Bilateral lung nodules and right paratracheal adenopathy consistent with metastatic disease. at 0149 Reported and signed by: Michelle Myrick MD Electronically Signed: Michelle Myrick MD at 1:49 EST Tel , Service support ,
[2020-04-10] MEDS: Menthol/Lanolin/Calamine/Znox 113 GM Tube 1 APPLIC TOPICAL ×4 (06:21→20:31)
[2020-04-10] MEDS: 0.9% Normal Saline 1,000 ML 125 ML IV ×2 (06:22→15:15)
--- NOTE | 2020-04-10 07:49 | PCM.CON.CC ---
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 on 04/09/2020 secondary to progressive shortness of breath. Patient reportedly had recently taken a long distance trip and returned on Friday. Patient has reported progressive abdominal distention over this period of time also, but is unclear on which developed first. Patient denied any fevers, chills or night sweats. Patient had not had any URI type symptoms such as rhinorrhea, congestion or postnasal drainage. Patient denied any cough and does not have any history of PE or DVT. Patient has had a thoracentesis in the past, but never required a paracentesis. Patient did not note lower extremity edema. In the ER, there was significant concern for pulmonary embolism. Patient did have a CT of the chest showing bilateral pleural effusions and multiple metastatic lesions. Patient was initiated on antibiotic therapy. On physical exam, patient reportedly had a fluid wave, but a paracentesis was not attempted. Patient was noted to have a significant leukocytosis of 49,000, platelet count of 556 and elevated potassium at 5.5. Lactate was elevated at 4 and BNP was 53. Patient was admitted to the intensive care unit for further evaluation. Since being in the intensive care unit, patient has had a CT of the abdomen. Results are below. Surgery has been consulted, but is not evaluated the patient at the time of my evaluation. Patient overall feels her dyspnea is relatively unchanged. Patient was placed in a Trendelenburg position with some improvement in dyspnea. Patient does report that she has had a thoracentesis previously secondary to pleural effusion, but is unclear if this was related to cancer. Patient states that she would not want her aerobic measures at this time. Patient states that cancer is everywhere and only wants to do things that may make things better. Patient knows Dr. Hughes from previous interventions and is willing to listen to his recommendations. Review of systems otherwise negative from a constitutional, HEENT, respiratory, cardiovascular, GI, genitourinary, musculoskeletal, skin, neurologic, psychiatric and hematologic system unless stated above. Past Medical History Past Medical History (Chronic Problems): Chronic Problems Rectal cancer (Chronic) Metastatic cancer (Chronic) Allergies No Known Allergies Allergy (Verified 04/09/20 17:24) Home Medications: Ambulatory Orders Medication Instructions Recorded Multivitamins,Therapeutic 1 tab PO DAILY 01/12/14 [Multivitamin] Dicyclomine HCl [Bentyl] 10 mg PO Q6H PRN 04/09/20 Oxycodone HCl/Acetaminophen 1 tab PO Q6H PRN PRN 04/09/20 [Percocet 5/325] Regorafenib [Stivarga] 40 mg PO DAILY 04/09/20 Surgical History: - - Tonsillectomy. Psychiatric History: No pertinent psych hx [employer] History: No pertinent [employer] history Lives: With Family - Patient notes that she is at home and 2 of her sons live with her. Smoking Status: Never smoker Tobacco Use: Non-smoker Alcohol: None Drugs: None - *Family History Maternal History Items: Cancer - Mother with a history of colon cancer. 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 CT scan of the chest shows multiple metastatic lesions, some pleural-based with associated pleural effusions. - Physical Exam Vitals/I&O's: Vital Signs Temp Pulse Resp BP Pulse Ox 36.6 C 124 H 30 H 118/86 H 96 04/10/20 04:00 04/10/20 07:00 04/10/20 07:00 04/10/20 07:00 04/10/20 07:00 Oxygen Delivery Method Room Air Weight: 82.9 kg Body Mass Index (BMI) 29.2 Intake and Output for Last 24 Hours 04/08/20 04/09/20 04/10/20 23:59 23:59 23:59 Intake Total 3390 / 3390 2415 / 2415 Output Total 150 / 150 350 / 350 Balance 3240 / 3240 2064 General: Alert, Oriented x3, Cooperative, No apparent distress, - HEENT: Atraumatic, PERRLA, EOMI, Normocephalic, - - Slight temporal wasting Oral: Moist Mucosa, No Gingival or Mucosal Lesions/ Ulcerations Neck: Supple, No Nodes, Trachea Midline, JVD, Right Lungs: No rhonchi, No wheeze, No rales, Diminished - Bilateral, - - Dullness to percussion at both bases Cardiovascular: Normal S1, Normal S2, No murmurs, No rub noted, No Gallop, Tachycardic, - - Sinus tachycardia noted on telemetry Abdomen: Bowel Sounds Present, Soft, Distended, - - Fluid wave noted Extremities: No clubbing, No cyanosis, No edema Skin: Rash Present - Perineal Musculoskeletal: No Tenderness to Palpation of Joints or Extremities Lymphatic: No Cervical, Supraclavicular, or Inguinal Adenopathy Neurological: Cranial nerves II-XII grossly intact, Neuro grossly intact, Motor Exam 5/5 strength throughout Psych/Mental Status: Alert and oriented to time, place, person, mood and affect Microbiology Past 72 Hours 04/09/20 21:45 Mucosa - Nasopharyngeal Respiratory Syncytial Virus Ag Scrn - Final 04/09/20 21:45 Mucosa - Nasopharyngeal Respiratory Panel (PCR) - Final 04/09/20 22:45 Urine, Clean Catch Legionella Antigen - Final 04/09/20 22:45 Urine, Clean Catch Streptococcus pneumoniae Antigen (M - Final Streptococcus pneumonia Ag 04/09/20 18:45 Blood Culture (Wb) - Anticubital Left Blood Culture - Preliminary Laboratory Results 04/09/20 17:50: WBC 49.0 H*, RBC 4.47, Hgb 11.6 L, Hct 38.7, MCV 86.6, MCH 26.0 L, MCHC 30.0 L, RDW Std Deviation 69.0 H, RDW Coeff of Bautista 21.9 H, Plt Count 556 H, MPV 9.0, Immature Gran % (Auto) 3.100 H, Neut % (Auto) 92.9 H, Lymph % (Auto) 1.0 L, [place] % (Auto) 3.0, Eos % (Auto) 0.0, Baso % (Auto) 0.0, Absolute Neuts (auto) 45.5 H, Absolute Lymphs (auto) 0.51 L, Nucleated RBC % 0, Differential Comment SEE COMMENTS, Diff Path Review Milena foll, Platelet Estimate MOD INC, RBC Morphology N CHROM, Anisocytosis RARE 04/09/20 17:50: PT 16.2 H, INR 1.4, APTT 30.7 04/09/20 17:50: Sodium 134 L, Potassium 5.5 H, Chloride 102, Carbon Dioxide 20.0 L, Anion Gap 12, BUN 23 H, Creatinine 1.04 H, Estim Creat Clear Calc 51.12, Est GFR (MDRD) Af Amer 69, Est GFR (MDRD) Non-Af 57 L, BUN/Creatinine Ratio 22.1 H, Glucose 116 H, Calcium 8.6, Troponin I < 0.015 04/09/20 17:50: B-Natriuretic Peptide 53.1 04/09/20 17:50: Magnesium 2.3, Total Bilirubin 1.20 H, Direct Bilirubin 0.75 H, AST 48 H, ALT 20, Alkaline Phosphatase 654 H, Total Protein 6.8, Albumin 1.7 L, Globulin 5.1 H, Lipase 17 L 04/09/20 17:50: Phosphorus 3.6 04/09/20 18:50: Lactic Acid 4.0 H* 04/09/20 22:00: MRSA (PCR) Negative 04/09/20 22:30: Procalcitonin 1.18 H 04/09/20 22:45: Urine Color Yellow, Urine Clarity Clear, Urine pH 5.0, Ur Specific [place] 1.005, Urine Protein 30 H, Urine Glucose (UA) Normal, Urine Ketones Negative, Urine Occult Blood 10 H, Urine Nitrite Negative, Urine Bilirubin Negative, Urine Urobilinogen 1 H, Ur Leukocyte Esterase 100 H, Urine RBC 0-5 SEEN, Urine WBC 10-25 SEEN, Ur Squamous Epith Cells 5-10 SEEN, Ur Transition Epith Cell 0-5 SEEN, Urine Bacteria 1+, Urine Mucus 0 SEEN 04/09/20 23:10: Lactate Dehydrogenase 639 H, Total Protein 4.8 L, Globulin 3.5, Albumin/Globulin Ratio 0.4 L 04/09/20 23:10: Lactic Acid 2.5 H* 04/10/20 04:15: WBC 46.5 H*, RBC 3.93 L, Hgb 10.2 L, Hct 34.4 L, MCV 87.5, MCH 26.0 L, MCHC 29.7 L, RDW Std Deviation 70.1 H, RDW Coeff of Bautista 22.0 H, Plt Count 403, MPV 9.0, Immature Gran % (Auto) 2.000 H, Neut % (Auto) 93.9 H, Lymph % (Auto) 0.8 L, [place] % (Auto) 2.8, Eos % (Auto) 0.2, Baso % (Auto) 0.3, Absolute Neuts (auto) 43.6 H, Absolute Lymphs (auto) 0.36 L, Nucleated RBC % 0, Differential Comment SCANNED, Diff Path Review May foll, Hypochromasia RARE, Ovalocytes RARE, Stomatocytes RARE 04/10/20 04:15: Sodium 137, Potassium 4.6, Chloride 110 H, Carbon Dioxide 17.0 L, Anion Gap 10, BUN 18, Creatinine 0.64, Estim Creat Clear Calc 83.06, Est GFR (MDRD) Af Amer 122, Est GFR (MDRD) Non-Af 101, BUN/Creatinine Ratio 28.3 H, Glucose 90, Calcium 7.0 L, Total Bilirubin 1.10 H, AST 46 H, ALT 18, Alkaline Phosphatase 518 H, Total Protein 5.5 L, Albumin 1.4 L, Globulin 4.1, Albumin/Globulin Ratio 0.3 L Current Medications Acetaminophen (Acetaminophen 325 Mg Tablet) 650 mg PO Q6H PRN PRN PRN Reason: Pain Score 1-10/Temp > 100.7 F Al Hydroxide/Mg Hydroxide (Mag Hydrox/Al Hydrox/Simeth 30 Ml Udc) 30 ml PO Q6H PRN PRN PRN Reason: Gastric Burning Albuterol Sulfate (Albuterol 2.5 Mg/3 Ml Vial.Neb.) 2.5 mg INHALATION Q2H PRN PRN PRN Reason: Dyspnea, wheezing Calamine/Phenol (Menthol/Lanolin/Calamine/Znox 113 Gm Tube) 1 applic TOPICAL TID [facility]; Protocol Last Admin: 04/10/20 06:21 Dose: 1 applicatio Documented by: Dicyclomine HCl (Dicyclomine 10 Mg Capsule) 10 mg PO Q6H PRN PRN PRN Reason: abd pain Guaifenesin (Guaifenesin 10 Ml Udc (200mg/10ml)) 10 ml PO Q4H PRN PRN PRN Reason: COUGH Hydralazine HCl (Hydralazine 20 Mg/Ml Vial) 10 mg IV Q4H PRN PRN PRN Reason: SBP > 160 Sodium Chloride () 1,000 mls @ 125 mls/hr IV .Q8H [facility] Last Admin: 04/10/20 06:22 Dose: 125 mls/hr Documented by: Piperacillin Sod/Tazobactam (Sod 3.375 gm/ Sodium Chloride) 50 mls @ 12.5 mls/hr IV Q8 [facility] Last Admin: 04/10/20 06:21 Dose: 12.5 mls/hr Documented by: Vancomycin IV Pharmacy to Dose (1 ea/ Sodium Chloride) 500 mls @ 250 mls/hr IV X1 PRN; Protocol PRN Reason: Rx to Dose Sodium Chloride () 250 mls @ 15 mls/hr IV .[id number] PRN PRN Reason: Saline Flush Sodium Chloride () 250 mls @ 15 mls/hr IV .[id number] PRN PRN Reason: Additional IVPB Infusion Vancomycin HCl 750 mg/ Sodium (Chloride) 265 mls @ 250 mls/hr IV Q12H [facility] Magnesium Hydroxide (Magnesium Hydroxide 30 Ml Udc) 30 ml PO DAILY PRN PRN PRN Reason: Constipation Melatonin (Melatonin 3 Mg Tablet) 3 mg PO QHS PRN PRN PRN Reason: INSOMNIA Morphine Sulfate (Morphine 2 Mg/Ml Syringe) 2 mg IV Q3H PRN PRN PRN Reason: Pain Score 6-10 Last Admin: 04/09/20 23:15 Dose: 2 mg Documented by: Nitroglycerin (Nitroglycerin (Inpatient Use) 0.4 Mg Tab.Subl) 0.4 mg SUBLINGUAL Q5M PRN PRN Reason: CARDIAC/CHEST PAIN Non-Formulary Medication (Regorafenib [Stivarga]) 40 mg PO DAILY [facility] Ondansetron HCl (Ondansetron 4 Mg/2 Ml Vial) 4 mg IV Q8H PRN PRN PRN Reason: NAUSEA/VOMITING Oxycodone HCl (Oxycodone 5 Mg Tablet) 5 mg PO Q4H PRN PRN PRN Reason: Pain Score 4-5 Last Admin: 04/10/20 03:00 Dose: 5 mg Documented by: Prochlorperazine Edisylate (Prochlorperazine 10 Mg/2 Ml Vial) 5 mg IV Q4H PRN PRN PRN Reason: Breakthrough Nausea/Vomiting Psyllium Hydrophilic Mucilloid (Psyllium 1 Packet) 1 packet PO DAILY PRN PRN PRN Reason: Constipation Senna/Docusate Sodium (Senna/Docusate Sodium 1 Tablet) 2 tablet PO BID PRN PRN PRN Reason: Constipation Sodium Chloride (0.9% Saline Lock 10 Ml Syringe) 10 - 40 ml IV UD PRN PRN Reason: SALINE FLUSH Throat Lozenges (Benzocaine/Menthol 1 Lozenge) 1 lozenge MUCOUS MEM Q2H PRN PRN PRN Reason: SORE THROAT Clinical Impression(s) from Imaging Studies Chest CTA 04/09/20 17:30 IMPRESSION: 1. No central or segmental pulmonary embolism. 2. Multiple pulmonary nodules/metastases, mediastinal/bilateral hilar adenopathy, hepatic masses, upper abdominal adenopathy, left adrenal gland mass worrisome for metastasis. 3. Left larger than right pleural effusions. Mild ascites. Omental stranding could be related to ascites versus omental metastasis (incompletely visualized). 4. Some of the liver masses demonstrate calcification and can be related to mucinous adenocarcinoma versus chemoembolization. 5. Comparison to prior imaging studies highly recommended to assess for interval change. Electronically Signed: Roberto Zelaya MD ([place]) at 19:06 EST , Service support , Chest X-Ray 04/10/20 05:55 IMPRESSION: 1. Bilateral pleural effusions. 2. Left basilar atelectasis versus infiltrate. 3. Bilateral lung nodules and right paratracheal adenopathy consistent with metastatic disease. at 0149 Reported and signed by: Michelle Myrick MD Electronically Signed: Michelle Myrick MD at 1:49 EST Tel , Service support , Abdomen/Pelvis CT 04/10/20 21:49 IMPRESSION: 1. Irregular contour of the rectum with gas in the perirectal space and extending into the right gluteal region with right gluteal air fluid collection concerning for developing abscess. 2. Rectal thickening and perirectal nodularity compatible with a provided history of rectal cancer with evidence of metastatic disease as detailed above. 3. Bilateral pleural effusions. 4. Additional findings above. Individualized dose optimization techniques were used for this CT. at 0113 Reported and signed by: Michelle Myrick MD Electronically Signed: Michelle Myrick MD at 1:13 EST Tel , Service support , ADDENDUM: 04/10/20128 IMPRESSION: 1. Irregular contour of the rectum with gas in the perirectal space and extending into the right gluteal region with right gluteal air fluid collection concerning for developing abscess. 2. Rectal thickening and perirectal nodularity compatible with a provided history of rectal cancer with evidence of metastatic disease as detailed above. 3. Bilateral pleural effusions. 4. Additional findings above. Individualized dose optimization techniques were used for this CT. at 0113 Reported and signed by: Michelle Myrick MD N.B. : The above information has been verbally conveyed by Michelle Myrick MD to Patti Amaya RN, on 04/10/2020 01:22:11 (ET). Electronically Signed: Michelle Myrick MD at 1:13 EST Tel , Service support , ADDENDUM: 04/10/20128 IMPRESSION: 1. Irregular contour of the rectum with gas in the perirectal space and extending into the right gluteal region with right gluteal air fluid collection concerning for developing abscess. 2. Rectal thickening and perirectal nodularity compatible with a provided history of rectal cancer with evidence of metastatic disease as detailed above. 3. Bilateral pleural effusions. 4. Additional findings above. Individualized dose optimization techniques were used for this CT. at 0113 Reported and signed by: Michelle Myrick MD Electronically Signed: Michelle Myrick MD at 1:22 EST Tel , Service support , N.B. : The above information has been verbally conveyed by Michelle Myrick MD to Patti Amaya RN, on 04/10/2020 01:22:11 (ET). 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 Continue healthcare associated antibiotics 2. Obtain paracentesis 3. If still dyspneic, could proceed with thoracentesis tomorrow 4. Await surgical/oncology recommendations 5. Wean oxygen as tolerated IMPRESSIONS: 1. Severe sepsis with lactic acidosis secondary to perirectal abscess Patient does appear to have a perirectal abscess. Surgery has been consulted for possible drain placement. Patient would be a poor surgical candidate overall. We will continue with healthcare associated antibiotics. 2. Dyspnea Multiple etiologies for dyspnea. Patient does have a large amount of ascites. Will attempt to tap the ascites. Patient remains symptomatic, thoracentesis can be obtained. High clinical suspicion for malignant pleural effusion. Tapping of the chest before the stomach will result in rapidly accumulating fluid. Patient also has a high metabolic burden of metastatic disease. 3. Metastatic colon cancer with elevated LFTs Patient with advanced colon cancer with multiple metastasis. Patient has liver and lung metastasis at this time. Clinical suspicion for hospice measures being appropriate, but awaiting for oncology to evaluate. 4. CKD stage III/mild hyperkalemia/chronic anemia Complicates care, management, recovery and prognosis. Continue with conservative therapy. No indication for transfusion at this time. Inpatient E&M: 24793 Init Hosp L3
[2020-04-10] MEDS: Morphine 2 MG/ML Syringe IV ×3 (08:36→23:11)
[2020-04-10] MEDS: Ondansetron 4 MG/2 ML Vial IV (08:36)
[2020-04-10] MEDS: 0.9% Saline Lock 10 ML Syringe IV ×4 (08:37→21:16)
--- NOTE | 2020-04-10 09:48 | PCM.CONS.GEN ---
Problem List (1) Rectal abscess Status: Acute (2) Malignant neoplasm of rectum metastatic to liver Status: Acute Reason for Consult Date of Consultation: 04/10/20 Reason for Consultation: Rectal abscess History of Present Illness: The patient is a 59 year old F who presents with increased shortness of breath. Patient has metastatic rectal cancer. She is currently on palliative care and follows with Dr. Rosado. Patient notes she has been having rectal pain for years. She notes slightly more pain more recently following a road trip she took. She notes depending on how she sits makes the pain increase. She is currently awaiting a paracentesis. PAtient's WBC is 46.[address] scan of the ab/pelvis demonstrating the following: FINDINGS: Evaluation of the abdominopelvic organs is limited in the absence of contrast. LOWER THORAX: Small right pleural effusion and moderate left pleural effusion. Multiple bilateral pulmonary nodules consistent with metastases as seen on recent CTA chest. LIVER: Multiple large hypodense liver lesions compatible with metastases. Calcified metastases also noted. GALLBLADDER: No radiopaque calculi. BILE DUCTS: No significant biliary dilatation. SPLEEN: Unremarkable. PANCREAS: Moderate fatty replacement. ADRENAL GLANDS: 2.4 x 2.9 cm left adrenal nodule concerning for metastasis. KIDNEYS/URETERS: Unremarkable. Contrast noted from previous CTA. BOWEL: No bowel obstruction. Irregularity of the rectum is noted with defect posteriorly with gas extending into the perirectal space, presacral space and into the right gluteal soft tissues. Air fluid collection in the right gluteal soft tissues measuring 3.5 x 3.8 cm. Soft tissue nodularity in nodes in the perirectal space compatible with neoplasm. No localized inflammation. APPENDIX: No evidence of appendicitis. FREE FLUID: Moderate amount of ascites. FREE AIR: None. LYMPH NODES: Retroperitoneal adenopathy, upper abdominal and bilateral inguinal adenopathy concerning for metastasis. PERITONEUM, RETROPERITONEUM AND MESENTERY: Otherwise unremarkable. VASCULATURE: Unremarkable as imaged. ABDOMINAL WALL: Unremarkable. PELVIS: Contrast in the bladder from previous CTA. Unremarkable uterus and adnexa. OSSEOUS AND SOFT TISSUE STRUCTURES: No acute skeletal findings. Past Medical History Past Medical History (Chronic Problems): Chronic Problems Rectal cancer (Chronic) Metastatic cancer (Chronic) Allergies No Known Allergies Allergy (Verified 04/09/20 17:24) Home Medications: Ambulatory Orders Medication Instructions Recorded Multivitamins,Therapeutic 1 tab PO DAILY 01/12/14 [Multivitamin] Dicyclomine HCl [Bentyl] 10 mg PO Q6H PRN 04/09/20 Oxycodone HCl/Acetaminophen 1 tab PO Q6H PRN PRN 04/09/20 [Percocet 5/325] Regorafenib [Stivarga] 40 mg PO DAILY 04/09/20 Surgical History: - - Tonsillectomy. 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 Smoking Status: Never smoker Tobacco Use: Non-smoker Alcohol: None Drugs: None - *Family History Maternal History Items: Cancer - Mother with a history of colon cancer. Paternal History Items: Heart Disease Review of Systems Constitutional: Reports: Anorexia, Weakness, Fatigue HEENT: Denies: Head Aches, Sinus Congestion, Sinus Drainage Cardiovascular: Denies: Chest Pain, Palpitations Respiratory: Reports: Shortness of Breath Gastrointestinal: Reports: Abdominal Pain Genitourinary: Denies: Dysuria Musculoskeletal: Denies: Joint Pain, Joint Tenderness Skin: Reports: Dryness Neurological: Reports: Balance problems Hematologic/ Lymphatic: Reports: Anemia Patient Problems: Active and Suspected Problems Systemic inflammatory response syndrome (SIRS) (Acute) Bilateral pleural effusion (Acute) Ascites, malignant (Acute) Malignant neoplasm of rectum metastatic to liver (Acute) Lactic acidosis (Acute) Rectal abscess (Acute) - Physical Exam Vitals/I&O's: Vital Signs Temp Pulse Resp BP Pulse Ox 97.7 F L 125 H 36 H 101/81 H 96 04/10/20 08:00 04/10/20 09:00 04/10/20 09:00 04/10/20 09:00 04/10/20 09:00 Oxygen Delivery Method Room Air Weight: 182 lb 12.211 oz Body Mass Index (BMI) 29.2 Intake and Output for Last 24 Hours 04/08/20 04/09/20 04/10/20 23:59 23:59 23:59 Intake Total 3390 / 3390 2415 / 2415 Output Total 150 / 150 550 / 550 Balance 3240 / 3240 1865 / 1865 General: Alert, Oriented x3, Cooperative HEENT: Atraumatic, PERRLA, EOMI, Normocephalic Neck: Supple, No JVD, Negative Carotid Bruits Lungs: Tachypneic Cardiovascular: Tachycardic Abdomen: Distended, Tender - slight tenderness generalized Extremities: No edema, Capillary Refill Less than 3 Seconds Skin: Excoriated - rectum Musculoskeletal: No Tenderness to Palpation of Joints or Extremities Neurological: Neuro grossly intact Psych/Mental Status: Normal Affect, Appropriate Microbiology Past 72 Hours 04/09/20 18:45 Blood Culture (Wb) - Anticubital Left Blood Culture - Preliminary 04/09/20 21:45 Mucosa - Nasopharyngeal Respiratory Syncytial Virus Ag Scrn - Final 04/09/20 21:45 Mucosa - Nasopharyngeal Respiratory Panel (PCR) - Final 04/09/20 22:45 Urine, Clean Catch Legionella Antigen - Final 04/09/20 22:45 Urine, Clean Catch Streptococcus pneumoniae Antigen (M - Final Streptococcus pneumonia Ag Laboratory Results 04/09/20 17:50: WBC 49.0 H*, RBC 4.47, Hgb 11.6 L, Hct 38.7, MCV 86.6, MCH 26.0 L, MCHC 30.0 L, RDW Std Deviation 69.0 H, RDW Coeff of Bautista 21.9 H, Plt Count 556 H, MPV 9.0, Immature Gran % (Auto) 3.100 H, Neut % (Auto) 92.9 H, Lymph % (Auto) 1.0 L, Woods % (Auto) 3.0, Eos % (Auto) 0.0, Baso % (Auto) 0.0, Absolute Neuts (auto) 45.5 H, Absolute Lymphs (auto) 0.51 L, Nucleated RBC % 0, Differential Comment SEE COMMENTS, Diff Path Review Milena smith, Platelet Estimate MOD INC, RBC Morphology N CHROM, Anisocytosis RARE 04/09/20 17:50: PT 16.2 H, INR 1.4, APTT 30.7 04/09/20 17:50: Sodium 134 L, Potassium 5.5 H, Chloride 102, Carbon Dioxide 20.0 L, Anion Gap 12, BUN 23 H, Creatinine 1.04 H, Estim Creat Clear Calc 51.12, Est GFR (MDRD) Af Amer 69, Est GFR (MDRD) Non-Af 57 L, BUN/Creatinine Ratio 22.1 H, Glucose 116 H, Calcium 8.6, Troponin I < 0.015 04/09/20 17:50: B-Natriuretic Peptide 53.1 04/09/20 17:50: Magnesium 2.3, Total Bilirubin 1.20 H, Direct Bilirubin 0.75 H, AST 48 H, ALT 20, Alkaline Phosphatase 654 H, Total Protein 6.8, Albumin 1.7 L, Globulin 5.1 H, Lipase 17 L 04/09/20 17:50: Phosphorus 3.6 04/09/20 18:50: Lactic Acid 4.0 H* 04/09/20 22:00: MRSA (PCR) Negative 04/09/20 22:30: Procalcitonin 1.18 H 04/09/20 22:45: Urine Color Yellow, Urine Clarity Clear, Urine pH 5.0, Ur Specific [place] 1.005, Urine Protein 30 H, Urine Glucose (UA) Normal, Urine Ketones Negative, Urine Occult Blood 10 H, Urine Nitrite Negative, Urine Bilirubin Negative, Urine Urobilinogen 1 H, Ur Leukocyte Esterase 100 H, Urine RBC 0-5 SEEN, Urine WBC 10-25 SEEN, Ur Squamous Epith Cells 5-10 SEEN, Ur Transition Epith Cell 0-5 SEEN, Urine Bacteria 1+, Urine Mucus 0 SEEN 04/09/20 23:10: Lactate Dehydrogenase 639 H, Total Protein 4.8 L, Globulin 3.5, Albumin/Globulin Ratio 0.4 L 04/09/20 23:10: Lactic Acid 2.5 H* 04/10/20 04:15: WBC 46.5 H*, RBC 3.93 L, Hgb 10.2 L, Hct 34.4 L, MCV 87.5, MCH 26.0 L, MCHC 29.7 L, RDW Std Deviation 70.1 H, RDW Coeff of Bautista 22.0 H, Plt Count 403, MPV 9.0, Immature Gran % (Auto) 2.000 H, Neut % (Auto) 93.9 H, Lymph % (Auto) 0.8 L, Woods % (Auto) 2.8, Eos % (Auto) 0.2, Baso % (Auto) 0.3, Absolute Neuts (auto) 43.6 H, Absolute Lymphs (auto) 0.36 L, Nucleated RBC % 0, Differential Comment SCANNED, Diff Path Review May foll, Hypochromasia RARE, Ovalocytes RARE, Stomatocytes RARE 04/10/20 04:15: Sodium 137, Potassium 4.6, Chloride 110 H, Carbon Dioxide 17.0 L, Anion Gap 10, BUN 18, Creatinine 0.64, Estim Creat Clear Calc 83.06, Est GFR (MDRD) Af Amer 122, Est GFR (MDRD) Non-Af 101, BUN/Creatinine Ratio 28.3 H, Glucose 90, Calcium 7.0 L, Total Bilirubin 1.10 H, AST 46 H, ALT 18, Alkaline Phosphatase 518 H, Total Protein 5.5 L, Albumin 1.4 L, Globulin 4.1, Albumin/Globulin Ratio 0.3 L Current Medications Acetaminophen (Acetaminophen 325 Mg Tablet) 650 mg PO Q6H PRN PRN PRN Reason: Pain Score 1-10/Temp > 100.7 F Al Hydroxide/Mg Hydroxide (Mag Hydrox/Al Hydrox/Simeth 30 Ml Udc) 30 ml PO Q6H PRN PRN PRN Reason: Gastric Burning Albuterol Sulfate (Albuterol 2.5 Mg/3 Ml Vial.Neb.) 2.5 mg INHALATION Q2H PRN PRN PRN Reason: Dyspnea, wheezing Calamine/Phenol (Menthol/Lanolin/Calamine/Znox 113 Gm Tube) 1 applic TOPICAL TID [facility]; Protocol Last Admin: 04/10/20 08:36 Dose: 1 applicatio Documented by: Dicyclomine HCl (Dicyclomine 10 Mg Capsule) 10 mg PO Q6H PRN PRN PRN Reason: abd pain Guaifenesin (Guaifenesin 10 Ml Udc (200mg/10ml)) 10 ml PO Q4H PRN PRN PRN Reason: COUGH Hydralazine HCl (Hydralazine 20 Mg/Ml Vial) 10 mg IV Q4H PRN PRN PRN Reason: SBP > 160 Sodium Chloride () 1,000 mls @ 125 mls/hr IV .Q8H [facility] Last Admin: 04/10/20 06:22 Dose: 125 mls/hr Documented by: Piperacillin Sod/Tazobactam (Sod 3.375 gm/ Sodium Chloride) 50 mls @ 12.5 mls/hr IV Q8 [facility] Last Admin: 04/10/20 06:21 Dose: 12.5 mls/hr Documented by: Vancomycin IV Pharmacy to Dose (1 ea/ Sodium Chloride) 500 mls @ 250 mls/hr IV X1 PRN; Protocol PRN Reason: Rx to Dose Sodium Chloride () 250 mls @ 15 mls/hr IV .[id number] PRN PRN Reason: Saline Flush Sodium Chloride () 250 mls @ 15 mls/hr IV .[id number] PRN PRN Reason: Additional IVPB Infusion Vancomycin HCl 750 mg/ Sodium (Chloride) 265 mls @ 250 mls/hr IV Q12H [facility] Magnesium Hydroxide (Magnesium Hydroxide 30 Ml Udc) 30 ml PO DAILY PRN PRN PRN Reason: Constipation Melatonin (Melatonin 3 Mg Tablet) 3 mg PO QHS PRN PRN PRN Reason: INSOMNIA Morphine Sulfate (Morphine 2 Mg/Ml Syringe) 2 mg IV Q3H PRN PRN PRN Reason: Pain Score 6-10 Last Admin: 04/10/20 08:36 Dose: 2 mg Documented by: Nitroglycerin (Nitroglycerin (Inpatient Use) 0.4 Mg Tab.Subl) 0.4 mg SUBLINGUAL Q5M PRN PRN Reason: CARDIAC/CHEST PAIN Non-Formulary Medication (Regorafenib [Stivarga]) 40 mg PO DAILY [facility] Ondansetron HCl (Ondansetron 4 Mg/2 Ml Vial) 4 mg IV Q8H PRN PRN PRN Reason: NAUSEA/VOMITING Last Admin: 04/10/20 08:36 Dose: 4 mg Documented by: Oxycodone HCl (Oxycodone 5 Mg Tablet) 5 mg PO Q4H PRN PRN PRN Reason: Pain Score 4-5 Last Admin: 04/10/20 03:00 Dose: 5 mg Documented by: Prochlorperazine Edisylate (Prochlorperazine 10 Mg/2 Ml Vial) 5 mg IV Q4H PRN PRN PRN Reason: Breakthrough Nausea/Vomiting Psyllium Hydrophilic Mucilloid (Psyllium 1 Packet) 1 packet PO DAILY PRN PRN PRN Reason: Constipation Senna/Docusate Sodium (Senna/Docusate Sodium 1 Tablet) 2 tablet PO BID PRN PRN PRN Reason: Constipation Sodium Chloride (0.9% Saline Lock 10 Ml Syringe) 10 - 40 ml IV UD PRN PRN Reason: SALINE FLUSH Last Admin: 04/10/20 08:37 Dose: 10 ml Documented by: Throat Lozenges (Benzocaine/Menthol 1 Lozenge) 1 lozenge MUCOUS MEM Q2H PRN PRN PRN Reason: SORE THROAT Assessment/Plan All Active Problems Systemic inflammatory response syndrome (SIRS) (Acute) Bilateral pleural effusion (Acute) Ascites, malignant (Acute) Malignant neoplasm of rectum metastatic to liver (Acute) Lactic acidosis (Acute) Rectal abscess (Acute) I have been consulted in conjunction with Dr. Hughes Impression: Metastatic rectal cancer. CT scan demonstrating rectal abscess Plan: I have discussed this patient with Dr. Hughes. We will await Dr. Rosado's recommendations and following Dr. Neville's paracentesis. We will reassess patient's status. At that time, may recommend a CT guided drainage of the rectal abscess with drain placement in radiology. Patient is not a good surgical candidate. Patient was agreeable to proceed with CT guided drainage, however questioning if patient is going to pursue hospice care. We will continue to monitor this patient's care. Thank you for allowing us to participate in this patient's care. Inpatient E&M: [id number] Init Hosp L1
--- NOTE | 2020-04-10 09:56 | US_ITS ---
PROCEDURE: Ultrasound guided paracentesis. DATE OF EXAMINATION: 04/10/2020. INDICATION: Female, 59 years old. Ascites. PHYSICIAN: Kip Lyles M.D. TECHNIQUE: The risks, benefits, and alternatives to the procedure were explained to the patient. The specific risks of bleeding, infection, and damage to bowel were detailed and accepted. Witnessed informed consent was obtained. The abdomen was ultrasonographically surveyed. An appropriate pocket of fluid was identified at the left lower quadrant. The skin were cleaned and prepped in the usual sterile fashion. Using ultrasound guidance, the peritoneal cavity was accessed with a 5-Amharic paracentesis needle/catheter system. The trocar was removed. A total of 1150 ml of justyn-colored fluid were removed from the peritoneal cavity. A 100 mL sample of fluid was sent to the laboratory. The catheter was removed and a sterile dressing was applied. The procedure was well tolerated. US/Paracentesis with US IMPRESSION: Ultrasound guided paracentesis. Electronically Signed: Kip Lyles, at 11:23 EST , Service support ,
--- NOTE | 2020-04-10 10:30 | FLU_PTH ---
PATIENT: HUONG VALADEZ LOC: ICU U#:[id number] AGE/SX: 59/F ROOM: [place] [address] RE04/09/[address]: Dr. Franklin Mason DO : 1960 BED: 1 DIS: 04/11/2020 SPEC #: [id number] RECD: 04/10/20 11:09 STATUS: CAMILO REQ #: [id number] ASTRID: 04/10/20 10:[address]: Franklin Mason DEPT: CYTOLOGY RECD BY: Allison Nascimento ENTERED: 04/10/20 11:58 SP TYPE: Fluid OTHR DR: MD Dr. Harmeet Tabor DO Dr. Daniel Peabody, MD Dr. Paul Masci, No Primary Care Phys Tissues: PARACENTESIS FLUID Procedures: Special Stain Group II Surgery Specimen Level IV Cytospin Fluid HEADER OPERATION: Paracentesis PRE-OP DIAGNOSIS: Ascites TISSUE SUBMITTED: Paracentesis fluid for cytology DIAGNOSIS CYTOLOGY Paracentesis fluid for cytology (cytospin and cell block): Malignant cells present derived from metastatic non-small cell carcinoma, favor adenocarcinoma. See comment. JORDAN:roberto 04/11/20 COMMENT Immunohistochemistry ([id number]) supports the above diagnosis and compatible with clinical impression of colorectal primary. Please make reference to previous specimen ([id number]) thoracentesis fluid for cytology with diagnosis of malignant cells present derived from metastatic non-small cell carcinoma, favor adenocarcinoma. Clinical correlation and appropriate follow up are necessary. CYTOLOGY STUDY Slides are reviewed. CYTOLOGY GROSS Received is 90 ml of cloudy yellow fluid labeled with the patient's name and and designated per the requisition as paracentesis. Submitted for cytology preparation including cell block. / roberto 04/10/20 TC:0 CPT: 83231, 14240
[2020-04-10 11:24] LABS: Cytology, Body Fluid / CSF SEE PATHOLOGY REPORT
[2020-04-10 11:39] LABS: Body Fluid Mononuclear WBC # 0.614 10^3/uL; Body Fluid Mononuclear WBC % 24.5 %; Body Fluid Polynuclear WBC # 1.888 10^3/uL; Body Fluid Polynuclear WBC % 75.5 %; White Blood Count/Body Fluid 2.502 10^3/uL
[2020-04-10 12:01] LABS: Glucose, Body Fluid 62 mg/dL (40-70); LDH,Body Fluid 518 Units/l (Not Establ.); Protein, Body Fluid 1.9 g/dL (Not Establ.)
[2020-04-10 12:37] LABS: Appearance/Body Fluid CLEAR; Auto B Fluid Analyzer BKGD Ct COUNTS W/IN LIMITS (W/IN LIMITS); Color/Body Fluid YELLOW; Lymphocytes 4 %; Macrophages 4 %; Mesothelial Cells 3 %; Monocytes 20 %; Neutrophil (Segs) 69 %; Red Cell Count/Body Fluid 72 /mm3; Source- Body Fluid OTHER
[2020-04-10 12:38] LABS: Body Fluid QC Type(s) BF1Q
--- NOTE | 2020-04-10 13:27 | CASEMGMT ---
LW/POA forms not on chart, SW let pt know that they are not on chart at present. She has four children, she states they all make decisions together. JACK Taylor
--- NOTE | 2020-04-10 13:27 | CASEMGMT ---
SW met w/pt in room in regard to diagnosis and how she is managing. She states that she sees Dr. Rosado once per month for chemotherapy, and the plan was if the chemotherapy did not go well, she was going to go with hospice. She states however that they never got that far, as what she has now came on so suddenly. Pt had one procedure done this morning but it didn't help her feel that much better, is hopeful the second procedure this afternoon will be more helpful. Pt states he children are supportive, states Michael Portillo is the oldest, but he lives in [place]. She did want SW to add his demographic information in the computer, SW will do so. Daughter Brenna is also listed and pt states she and the other children are all supportive. SW remains available to pt for supportive needs and hospice referral if indicated. JACK Taylor
--- NOTE | 2020-04-10 14:25 | CASEMGMT ---
RN CM Note: assessment deferred. Patient to testing and not feeling well today. Emma CHIANGN RN ACM
--- NOTE | 2020-04-10 15:04 | PN_ITS ---
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 General surgery saw the patient today and did not feel the patient was an operative candidate. Patient's white blood cell count today was 46.5, patient's urine antigen for strep pneumoniae was positive. - Physical Exam Vitals/I&O's: Vital Signs Temp Pulse Resp BP Pulse Ox 97.9 F 126 H 32 H 125/91 H 100 04/10/20 12:00 04/10/20 14:00 04/10/20 14:00 04/10/20 14:00 04/10/20 14:00 Oxygen Delivery Method [3] Room Air Oxygen Delivery Method [2] Room Air Oxygen Delivery Method [1 ( Room Air Initial Baseline)] Oxygen Delivery Method Room Air Weight: 82.9 kg Body Mass Index (BMI) 29.2 Intake and Output for Last 24 Hours 04/08/20 04/09/20 04/10/20 23:59 23:59 23:59 Intake Total 3390 / 3390 3342.5 / 3342.5 Output Total 150 / 150 1900 / 1900 Balance 3240 / 3240 1442.5 / 1442.5 General: Alert, Oriented x3, Cooperative, No apparent distress, Well developed, Well nourished HEENT: Atraumatic, PERRLA, EOMI, Normocephalic Oral: Moist Mucosa Neck: Supple, Trachea Midline, Thyroid Normal Size and Texture Lungs: Clear to auscultation, Normal air movement, No rhonchi, No wheeze, No rales Cardiovascular: Regular rate, Regular Rhythm, Normal S1, Normal S2, No murmurs, PMI Normal, No rub noted, No Gallop Abdomen: Bowel Sounds Present, Soft, Non Tender, Non-Distended, No hernias noted Extremities: No clubbing, No cyanosis, Capillary Refill Less than 3 Seconds Skin: No rashes, No breakdown Musculoskeletal: No Tenderness to Palpation of Joints or Extremities Neurological: Cranial nerves II-XII grossly intact, Neuro grossly intact, Sensory exam intact to light touch and pain Psych/Mental Status: Appropriate, Flat Affect, - - Patient is a poor informant Microbiology Past 72 Hours 04/09/20 22:25 Urine, Clean Catch Urine Culture - Preliminary Culture exhibits no growth. 04/09/20 18:45 Blood Culture (Wb) - Anticubital Left Blood Culture - Preliminary 04/09/20 21:45 Mucosa - Nasopharyngeal Respiratory Syncytial Virus Ag Scrn - Final 04/09/20 21:45 Mucosa - Nasopharyngeal Respiratory Panel (PCR) - Final 04/09/20 22:45 Urine, Clean Catch Legionella Antigen - Final 04/09/20 22:45 Urine, Clean Catch Streptococcus pneumoniae Antigen (M - Final Streptococcus pneumonia Ag Laboratory Results 04/09/20 17:50: WBC 49.0 H*, RBC 4.47, Hgb 11.6 L, Hct 38.7, MCV 86.6, MCH 26.0 L, MCHC 30.0 L, RDW Std Deviation 69.0 H, RDW Coeff of Bautista 21.9 H, Plt Count 556 H, MPV 9.0, Immature Gran % (Auto) 3.100 H, Neut % (Auto) 92.9 H, Lymph % (Auto) 1.0 L, Nuckolls % (Auto) 3.0, Eos % (Auto) 0.0, Baso % (Auto) 0.0, Absolute Neuts (auto) 45.5 H, Absolute Lymphs (auto) 0.51 L, Nucleated RBC % 0, Differential Comment SEE COMMENTS, Diff Path Review Milena smith, Platelet Estimate MOD INC, RBC Morphology N CHROM, Anisocytosis RARE 04/09/20 17:50: PT 16.2 H, INR 1.4, APTT 30.7 04/09/20 17:50: Sodium 134 L, Potassium 5.5 H, Chloride 102, Carbon Dioxide 20.0 L, Anion Gap 12, BUN 23 H, Creatinine 1.04 H, Estim Creat Clear Calc 51.12, Est GFR (MDRD) Af Amer 69, Est GFR (MDRD) Non-Af 57 L, BUN/Creatinine Ratio 22.1 H, Glucose 116 H, Calcium 8.6, Troponin I < 0.015 04/09/20 17:50: B-Natriuretic Peptide 53.1 04/09/20 17:50: Magnesium 2.3, Total Bilirubin 1.20 H, Direct Bilirubin 0.75 H, AST 48 H, ALT 20, Alkaline Phosphatase 654 H, Total Protein 6.8, Albumin 1.7 L, Globulin 5.1 H, Lipase 17 L 04/09/20 17:50: Phosphorus 3.6 04/09/20 18:50: Lactic Acid 4.0 H* 04/09/20 22:00: MRSA (PCR) Negative 04/09/20 22:30: Procalcitonin 1.18 H 04/09/20 22:45: Urine Color Yellow, Urine Clarity Clear, Urine pH 5.0, Ur Specific [place] 1.005, Urine Protein 30 H, Urine Glucose (UA) Normal, Urine Ketones Negative, Urine Occult Blood 10 H, Urine Nitrite Negative, Urine Bilirubin Negative, Urine Urobilinogen 1 H, Ur Leukocyte Esterase 100 H, Urine RBC 0-5 SEEN, Urine WBC 10-25 SEEN, Ur Squamous Epith Cells 5-10 SEEN, Ur Transition Epith Cell 0-5 SEEN, Urine Bacteria 1+, Urine Mucus 0 SEEN 04/09/20 23:10: Lactate Dehydrogenase 639 H, Total Protein 4.8 L, Globulin 3.5, Albumin/Globulin Ratio 0.4 L 04/09/20 23:10: Lactic Acid 2.5 H* 04/10/20 04:15: WBC 46.5 H*, RBC 3.93 L, Hgb 10.2 L, Hct 34.4 L, MCV 87.5, MCH 26.0 L, MCHC 29.7 L, RDW Std Deviation 70.1 H, RDW Coeff of Bautista 22.0 H, Plt Count 403, MPV 9.0, Immature Gran % (Auto) 2.000 H, Neut % (Auto) 93.9 H, Lymph % (Auto) 0.8 L, Nuckolls % (Auto) 2.8, Eos % (Auto) 0.2, Baso % (Auto) 0.3, Absolute Neuts (auto) 43.6 H, Absolute Lymphs (auto) 0.36 L, Nucleated RBC % 0, Differential Comment SCANNED, Diff Path Review May foll, Hypochromasia RARE, Ovalocytes RARE, Stomatocytes RARE 04/10/20 04:15: Sodium 137, Potassium 4.6, Chloride 110 H, Carbon Dioxide 17.0 L , Anion Gap 10, BUN 18, Creatinine 0.64, Estim Creat Clear Calc 83.06, Est GFR (MDRD) Af Amer 122, Est GFR (MDRD) Non-Af 101, BUN/Creatinine Ratio 28.3 H, Glucose 90, Calcium 7.0 L, Total Bilirubin 1.10 H, AST 46 H, ALT 18, Alkaline Phosphatase 518 H, Total Protein 5.5 L, Albumin 1.4 L, Globulin 4.1, Albumin/Globulin Ratio 0.3 L 04/10/20 10:30: Fluid Glucose 62, Fluid Total Protein 1.9, Fluid LDH 518 04/10/20 10:30: Fluid pH Pending 04/10/20 11:55: Ammonia 36.0 H 04/10/20 : Fluid Source OTHER, Fluid Color YELLOW, Fluid Appearance CLEAR, Fluid WBC 2.502, Fluid RBC 72, Fluid Tot Cell Count 2.580 H, Fld Polynuclear WBCs # 1.888, Fld Polynuclear WBCs % 75.5, Fluid Mononuclear WBCs 0.614, Fld Mononuclear WBCs % 24.5, Fluid Neutrophils 69, Fluid Lymphocytes 4, Fluid Monocytes 20, Fluid Macrophages 4, Fld Mesothelial Cells 3, Fl Pathologist Comment May follow, Fluid Comment 2 TNP 04/10/20 : Miscellaneous Cytology Pending Current Medications Acetaminophen (Acetaminophen 325 Mg Tablet) 650 mg PO Q6H PRN PRN PRN Reason: Pain Score 1-10/Temp > 100.7 F Al Hydroxide/Mg Hydroxide (Mag Hydrox/Al Hydrox/Simeth 30 Ml Udc) 30 ml PO Q6H PRN PRN PRN Reason: Gastric Burning Albuterol Sulfate (Albuterol 2.5 Mg/3 Ml Vial.Neb.) 2.5 mg INHALATION Q2H PRN PRN PRN Reason: Dyspnea, wheezing Calamine/Phenol (Menthol/Lanolin/Calamine/Znox 113 Gm Tube) 1 applic TOPICAL TID SAM; Protocol Last Admin: 04/10/20 13:26 Dose: 1 applicatio Documented by: Dicyclomine HCl (Dicyclomine 10 Mg Capsule) 10 mg PO Q6H PRN PRN PRN Reason: abd pain Guaifenesin (Guaifenesin 10 Ml Udc (200mg/10ml)) 10 ml PO Q4H PRN PRN PRN Reason: COUGH Hydralazine HCl (Hydralazine 20 Mg/Ml Vial) 10 mg IV Q4H PRN PRN PRN Reason: SBP > 160 Sodium Chloride () 1,000 mls @ 125 mls/hr IV .Q8H COUNT INCLUDES THE [facility] Last Infusion: 04/10/20 12:15 Dose: 125 mls/hr Documented by: Piperacillin Sod/Tazobactam (Sod 3.375 gm/ Sodium Chloride) 50 mls @ 12.5 mls/hr IV Q8 COUNT INCLUDES THE [facility] Last Admin: 04/10/20 13:24 Dose: 12.5 mls/hr Documented by: Vancomycin IV Pharmacy to Dose (1 ea/ Sodium Chloride) 500 mls @ 250 mls/hr IV X1 PRN; Protocol PRN Reason: Rx to Dose Sodium Chloride () 250 mls @ 15 mls/hr IV .[id number] PRN PRN Reason: Saline Flush Sodium Chloride () 250 mls @ 15 mls/hr IV .[id number] PRN PRN Reason: Additional IVPB Infusion Vancomycin HCl 750 mg/ Sodium (Chloride) 265 mls @ 250 mls/hr IV Q12H COUNT INCLUDES THE [facility] Last Infusion: 04/10/20 12:15 Dose: Infused Documented by: Magnesium Hydroxide (Magnesium Hydroxide 30 Ml Udc) 30 ml PO DAILY PRN PRN PRN Reason: Constipation Melatonin (Melatonin 3 Mg Tablet) 3 mg PO QHS PRN PRN PRN Reason: INSOMNIA Morphine Sulfate (Morphine 2 Mg/Ml Syringe) 2 mg IV Q3H PRN PRN PRN Reason: Pain Score 6-10 Last Admin: 04/10/20 08:36 Dose: 2 mg Documented by: Nitroglycerin (Nitroglycerin (Inpatient Use) 0.4 Mg Tab.Subl) 0.4 mg SUBLINGUAL Q5M PRN PRN Reason: CARDIAC/CHEST PAIN Non-Formulary Medication (Regorafenib [Stivarga]) 40 mg PO DAILY COUNT INCLUDES THE [facility] Ondansetron HCl (Ondansetron 4 Mg/2 Ml Vial) 4 mg IV Q8H PRN PRN PRN Reason: NAUSEA/VOMITING Last Admin: 04/10/20 08:36 Dose: 4 mg Documented by: Oxycodone HCl (Oxycodone 5 Mg Tablet) 5 mg PO Q4H PRN PRN PRN Reason: Pain Score 4-5 Last Admin: 04/10/20 03:00 Dose: 5 mg Documented by: Prochlorperazine Edisylate (Prochlorperazine 10 Mg/2 Ml Vial) 5 mg IV Q4H PRN PRN PRN Reason: Breakthrough Nausea/Vomiting Psyllium Hydrophilic Mucilloid (Psyllium 1 Packet) 1 packet PO DAILY PRN PRN PRN Reason: Constipation Senna/Docusate Sodium (Senna/Docusate Sodium 1 Tablet) 2 tablet PO BID PRN PRN PRN Reason: Constipation Sodium Chloride (0.9% Saline Lock 10 Ml Syringe) 10 - 40 ml IV UD PRN PRN Reason: SALINE FLUSH Last Admin: 04/10/20 08:37 Dose: 10 ml Documented by: Throat Lozenges (Benzocaine/Menthol 1 Lozenge) 1 lozenge MUCOUS MEM Q2H PRN PRN PRN Reason: SORE THROAT Medical Necessity - Tobacco Use Smoking Status: Never smoker Tobacco Use: Non-smoker Assessment/Plan All Active Problems Systemic inflammatory response syndrome (SIRS) (Acute) Bilateral pleural effusion (Acute) Ascites, malignant (Acute) 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 Patient is currently on vancomycin and Zosyn, defer other orders to critical care #2 malignant ascites-patient underwent paracentesis today with removal of fluid #3 metastatic rectal cancer-lung and liver metastases, critical care talked briefly with the patient today about hospice care, she will be talking to her oncologist hopefully today about how aggressive to get with her treatment #4 chronic kidney disease stage III #5 dyspnea secondary to malignant ascites with bilateral pleural effusions- patient is currently on room air #6 cognitive impairment-this may be secondary to mild metabolic encephalopathy, patient did not remember talking to critical care today #7 severe protein and caloric malnutrition-dietary saw patient, recommendations were made #8 + urine antigen for strep pneumoniae-suspect patient may have an underlying pneumonia, she is currently on Zosyn which should cover the organism Inpatient E&M: 53868 Subs Hosp L2
[2020-04-10] MEDS: Albuterol 2.5 MG/3 ML VIAL.NEB. INHALATION (20:26)
[2020-04-10] MEDS: LORazepam 2 MG/ML Syringe IV (20:31)
[2020-04-10] MEDS: Furosemide 40 MG/4 ML Vial IV (21:11)
--- NOTE | 2020-04-10 21:49 | CT_ITS ---
We are attempting to reach an attending provider to discuss findings. An addendum with communication details will be sent when the communication is complete. HISTORY: ABD PAIN. SEPTIC, DYSPNEA, FATIGUE, OATMEAL STOOL, CURRENT RECTAL CA WITH METS AND CHEMO, PT WAS INJECTED AT 1840 FOR CTA CHEST ADDITIONAL HISTORY: None provided. EXAMINATION/TECHNIQUE: CT Abdomen And Pelvis W/O Contrast Injection Enteric contrast was not given. Number of images including paperwork: [phone]. A radiation dose optimization technique was used for this scan. COMPARISON: None FINDINGS: Evaluation of the abdominopelvic organs is limited in the absence of contrast. LOWER THORAX: Small right pleural effusion and moderate left pleural effusion. Multiple bilateral pulmonary nodules consistent with metastases as seen on recent CTA chest. LIVER: Multiple large hypodense liver lesions compatible with metastases. Calcified metastases also noted. GALLBLADDER: No radiopaque calculi. BILE DUCTS: No significant biliary dilatation. SPLEEN: Unremarkable. PANCREAS: Moderate fatty replacement. ADRENAL GLANDS: 2.4 x 2.9 cm left adrenal nodule concerning for metastasis. KIDNEYS/URETERS: Unremarkable. Contrast noted from previous CTA. BOWEL: No bowel obstruction. Irregularity of the rectum is noted with defect posteriorly with gas extending into the perirectal space, presacral space and into the right gluteal soft tissues. Air fluid collection in the right gluteal soft tissues measuring 3.5 x 3.8 cm. Soft tissue nodularity in nodes in the perirectal space compatible with neoplasm. No localized inflammation. APPENDIX: No evidence of appendicitis. FREE FLUID: Moderate amount of ascites. FREE AIR: None. LYMPH NODES: Retroperitoneal adenopathy, upper abdominal and bilateral inguinal adenopathy concerning for metastasis. PERITONEUM, RETROPERITONEUM AND MESENTERY: Otherwise unremarkable. VASCULATURE: Unremarkable as imaged. ABDOMINAL WALL: Unremarkable. PELVIS: Contrast in the bladder from previous CTA. Unremarkable uterus and adnexa. OSSEOUS AND SOFT TISSUE STRUCTURES: No acute skeletal findings. CT/Abdomen/Pelvis without Cont IMPRESSION: 1. Irregular contour of the rectum with gas in the perirectal space and extending into the right gluteal region with right gluteal air fluid collection concerning for developing abscess. 2. Rectal thickening and perirectal nodularity compatible with a provided history of rectal cancer with evidence of metastatic disease as detailed above. 3. Bilateral pleural effusions. 4. Additional findings above. Individualized dose optimization techniques were used for this CT. at 0113 Reported and signed by: Michelle Myrick MD Electronically Signed: Michelle Myrick MD at 1:13 EST Tel , Service support ,
--- NOTE | 2020-04-10 23:50 | NURSING ---
Daughter, Brenna, and son, Alberto, at bedside at this time.
[2020-04-11] VITALS (13 sets, daily range): BP systolic 95–126; BP diastolic 55–78; PULSE 124–133; RESP 30–38; TEMP 36.3–36.9; O2SAT 92–100
--- NOTE | 2020-04-11 00:07 | NURSING ---
family at bedside, discussed patient status and POC, they are aware Masci will see in the AM and plan for hospice, discussed if at any point they do not want to wait for hospice in the morning, we can do hospice comfort meds here at this time wanting to continue with current plan and meds, emotional support provided, snacks/coffee/water given.
[2020-04-11] MEDS: Morphine 2 MG/ML Syringe IV ×4 (02:36→08:34)
[2020-04-11] MEDS: 0.9% Saline Lock 10 ML Syringe IV ×3 (02:38→08:35)
[2020-04-11] MEDS: Menthol/Lanolin/Calamine/Znox 113 GM Tube 1 APPLIC TOPICAL (05:30)
[2020-04-11] MEDS: LORazepam 2 MG/ML Syringe IV ×3 (06:42→10:43)
--- NOTE | 2020-04-11 07:08 | PN_ITS ---
Subjective: Patient with significant difficulties overnight. Patient was having difficulty with respirations, tachypnea and confusion. Family was called and and will likely go to hospice later today. Patient has received 1 dose of Ativan and some morphine overnight for symptom control. Patient does have a son that is currently coming in from [place]. General: Lethargic, Non-Cooperative, - HEENT: Atraumatic, PERRLA, - - Slight icterus noted. Oral: No Gingival or Mucosal Lesions/ Ulcerations, Dry Mucosa Neck: Supple, No JVD, No Nodes, Trachea Midline Lungs: No rhonchi, No wheeze, No rales, Diminished, - - Dullness to percussion, right greater than left Cardiovascular: Regular Rhythm, Normal S1, Normal S2, No murmurs, No rub noted, No Gallop, Tachycardic Abdomen: Bowel Sounds Present, Soft, Non Tender, Non-Distended Extremities: No clubbing, No cyanosis, Edema Skin: - - No change from previous Musculoskeletal: No Tenderness to Palpation of Joints or Extremities Lymphatic: No Cervical, Supraclavicular, or Inguinal Adenopathy Neurological: Neuro grossly intact - Nonfocal neurologic exam. Psych/Mental Status: Restless Vital Signs Temp Pulse Resp BP Pulse Ox 36.3 C L 126 H 36 H 104/55 L 98 04/11/20 04:00 04/11/20 07:00 04/11/20 07:00 04/11/20 07:00 04/11/20 07:00 Oxygen Delivery Method [3] Room Air Oxygen Delivery Method [2] Room Air Oxygen Delivery Method [1 ( Room Air Initial Baseline)] Oxygen Delivery Method Room Air Weight: 84.3 kg Body Mass Index (BMI) 29.2 Intake and Output for Last 24 Hours 04/09/20 04/10/20 04/11/20 23:59 23:59 23:59 Intake Total 3390 / 3390 4982.08 / 4982.08 315 / 315 Output Total 150 / 150 2175 / 2275 200 / 200 Balance 3240 / 3240 2807.08 / 2707.08 115 / 115 Labs (Last 48 Hours) 04/09/20 04/09/20 04/09/20 17:50 17:50 17:50 WBC 49.0 H* RBC 4.47 Hgb 11.6 L Hct 38.7 MCV 86.6 MCH 26.0 L MCHC 30.0 L RDW Std Deviation 69.0 H RDW Coeff of Bautista 21.9 H Plt Count 556 H MPV 9.0 Immature Gran % (Auto) 3.100 H Neut % (Auto) 92.9 H Lymph % (Auto) 1.0 L Churchill % (Auto) 3.0 Eos % (Auto) 0.0 Baso % (Auto) 0.0 Absolute Neuts (auto) 45.5 H Absolute Lymphs (auto) 0.51 L Nucleated RBC % 0 Differential Comment SEE COMMENTS Diff Path Review May foll Platelet Estimate MOD INC RBC Morphology N CHROM Hypochromasia Anisocytosis RARE Ovalocytes Stomatocytes PT 16.2 H INR 1.4 APTT 30.7 Sodium 134 L Potassium 5.5 H Chloride 102 Carbon Dioxide 20.0 L Anion Gap 12 BUN 23 H Creatinine 1.04 H Estim Creat Clear Calc 51.12 Est GFR (MDRD) Af Amer 69 Est GFR (MDRD) Non-Af 57 L BUN/Creatinine Ratio 22.1 H Glucose 116 H Lactic Acid Calcium 8.6 Phosphorus Magnesium Total Bilirubin Direct Bilirubin AST ALT Alkaline Phosphatase Ammonia Lactate Dehydrogenase Troponin I < 0.015 B-Natriuretic Peptide Total Protein Albumin Globulin Albumin/Globulin Ratio Lipase Procalcitonin Urine Color Urine Clarity Urine pH Ur Specific Cos Cob Urine Protein Urine Glucose (UA) Urine Ketones Urine Occult Blood Urine Nitrite Urine Bilirubin Urine Urobilinogen Ur Leukocyte Esterase Urine RBC Urine WBC Ur Squamous Epith Cells Ur Transition Epith Cell Urine Bacteria Urine Mucus Fluid Source Fluid Color Fluid Appearance Fluid pH Fluid WBC Fluid RBC Fluid Tot Cell Count Fld Polynuclear WBCs # Fld Polynuclear WBCs % Fluid Mononuclear WBCs Fld Mononuclear WBCs % Fluid Neutrophils Fluid Lymphocytes Fluid Monocytes Fluid Macrophages Fld Mesothelial Cells Fl Pathologist Comment Fluid Glucose Fluid Total Protein Fluid LDH Fluid Comment 2 MRSA (PCR) Miscellaneous Cytology 04/09/20 04/09/20 04/09/20 17:50 17:50 17:50 WBC RBC Hgb Hct MCV MCH MCHC RDW Std Deviation RDW Coeff of Bautista Plt Count MPV Immature Gran % (Auto) Neut % (Auto) Lymph % (Auto) Churchill % (Auto) Eos % (Auto) Baso % (Auto) Absolute Neuts (auto) Absolute Lymphs (auto) Nucleated RBC % Differential Comment Diff Path Review Platelet Estimate RBC Morphology Hypochromasia Anisocytosis Ovalocytes Stomatocytes PT INR APTT Sodium Potassium Chloride Carbon Dioxide Anion Gap BUN Creatinine Estim Creat Clear Calc Est GFR (MDRD) Af Amer Est GFR (MDRD) Non-Af BUN/Creatinine Ratio Glucose Lactic Acid Calcium Phosphorus 3.6 Magnesium 2.3 Total Bilirubin 1.20 H Direct Bilirubin 0.75 H AST 48 H ALT 20 Alkaline Phosphatase 654 H Ammonia Lactate Dehydrogenase Troponin I B-Natriuretic Peptide 53.1 Total Protein 6.8 Albumin 1.7 L Globulin 5.1 H Albumin/Globulin Ratio Lipase 17 L Procalcitonin Urine Color Urine Clarity Urine pH Ur Specific Cos Cob Urine Protein Urine Glucose (UA) Urine Ketones Urine Occult Blood Urine Nitrite Urine Bilirubin Urine Urobilinogen Ur Leukocyte Esterase Urine RBC Urine WBC Ur Squamous Epith Cells Ur Transition Epith Cell Urine Bacteria Urine Mucus Fluid Source Fluid Color Fluid Appearance Fluid pH Fluid WBC Fluid RBC Fluid Tot Cell Count Fld Polynuclear WBCs # Fld Polynuclear WBCs % Fluid Mononuclear WBCs Fld Mononuclear WBCs % Fluid Neutrophils Fluid Lymphocytes Fluid Monocytes Fluid Macrophages Fld Mesothelial Cells Fl Pathologist Comment Fluid Glucose Fluid Total Protein Fluid LDH Fluid Comment 2 MRSA (PCR) Miscellaneous Cytology 04/09/20 04/09/20 04/09/20 18:50 22:00 22:30 WBC RBC Hgb Hct MCV MCH MCHC RDW Std Deviation RDW Coeff of Bautista Plt Count MPV Immature Gran % (Auto) Neut % (Auto) Lymph % (Auto) Churchill % (Auto) Eos % (Auto) Baso % (Auto) Absolute Neuts (auto) Absolute Lymphs (auto) Nucleated RBC % Differential Comment Diff Path Review Platelet Estimate RBC Morphology Hypochromasia Anisocytosis Ovalocytes Stomatocytes PT INR APTT Sodium Potassium Chloride Carbon Dioxide Anion Gap BUN Creatinine Estim Creat Clear Calc Est GFR (MDRD) Af Amer Est GFR (MDRD) Non-Af BUN/Creatinine Ratio Glucose Lactic Acid 4.0 H* Calcium Phosphorus Magnesium Total Bilirubin Direct Bilirubin AST ALT Alkaline Phosphatase Ammonia Lactate Dehydrogenase Troponin I B-Natriuretic Peptide Total Protein Albumin Globulin Albumin/Globulin Ratio Lipase Procalcitonin 1.18 H Urine Color Urine Clarity Urine pH Ur Specific Cos Cob Urine Protein Urine Glucose (UA) Urine Ketones Urine Occult Blood Urine Nitrite Urine Bilirubin Urine Urobilinogen Ur Leukocyte Esterase Urine RBC Urine WBC Ur Squamous Epith Cells Ur Transition Epith Cell Urine Bacteria Urine Mucus Fluid Source Fluid Color Fluid Appearance Fluid pH Fluid WBC Fluid RBC Fluid Tot Cell Count Fld Polynuclear WBCs # Fld Polynuclear WBCs % Fluid Mononuclear WBCs Fld Mononuclear WBCs % Fluid Neutrophils Fluid Lymphocytes Fluid Monocytes Fluid Macrophages Fld Mesothelial Cells Fl Pathologist Comment Fluid Glucose Fluid Total Protein Fluid LDH Fluid Comment 2 MRSA (PCR) Negative Miscellaneous Cytology 04/09/20 04/09/20 04/09/20 22:45 23:10 23:10 WBC RBC Hgb Hct MCV MCH MCHC RDW Std Deviation RDW Coeff of Bautista Plt Count MPV Immature Gran % (Auto) Neut % (Auto) Lymph % (Auto) Churchill % (Auto) Eos % (Auto) Baso % (Auto) Absolute Neuts (auto) Absolute Lymphs (auto) Nucleated RBC % Differential Comment Diff Path Review Platelet Estimate RBC Morphology Hypochromasia Anisocytosis Ovalocytes Stomatocytes PT INR APTT Sodium Potassium Chloride Carbon Dioxide Anion Gap BUN Creatinine Estim Creat Clear Calc Est GFR (MDRD) Af Amer Est GFR (MDRD) Non-Af BUN/Creatinine Ratio Glucose Lactic Acid 2.5 H* Calcium Phosphorus Magnesium Total Bilirubin Direct Bilirubin AST ALT Alkaline Phosphatase Ammonia Lactate Dehydrogenase 639 H Troponin I B-Natriuretic Peptide Total Protein 4.8 L Albumin Globulin 3.5 Albumin/Globulin Ratio 0.4 L Lipase Procalcitonin Urine Color Yellow Urine Clarity Clear Urine pH 5.0 Ur Specific Cos Cob 1.005 Urine Protein 30 H Urine Glucose (UA) Normal Urine Ketones Negative Urine Occult Blood 10 H Urine Nitrite Negative Urine Bilirubin Negative Urine Urobilinogen 1 H Ur Leukocyte Esterase 100 H Urine RBC 0-5 SEEN Urine WBC 10-25 SEEN Ur Squamous Epith Cells 5-10 SEEN Ur Transition Epith Cell 0-5 SEEN Urine Bacteria 1+ Urine Mucus 0 SEEN Fluid Source Fluid Color Fluid Appearance Fluid pH Fluid WBC Fluid RBC Fluid Tot Cell Count Fld Polynuclear WBCs # Fld Polynuclear WBCs % Fluid Mononuclear WBCs Fld Mononuclear WBCs % Fluid Neutrophils Fluid Lymphocytes Fluid Monocytes Fluid Macrophages Fld Mesothelial Cells Fl Pathologist Comment Fluid Glucose Fluid Total Protein Fluid LDH Fluid Comment 2 MRSA (PCR) Miscellaneous Cytology 04/10/20 04/10/20 04/10/20 04:15 04:15 10:30 WBC 46.5 H* RBC 3.93 L Hgb 10.2 L Hct 34.4 L MCV 87.5 MCH 26.0 L MCHC 29.7 L RDW Std Deviation 70.1 H RDW Coeff of Bautista 22.0 H Plt Count 403 MPV 9.0 Immature Gran % (Auto) 2.000 H Neut % (Auto) 93.9 H Lymph % (Auto) 0.8 L Churchill % (Auto) 2.8 Eos % (Auto) 0.2 Baso % (Auto) 0.3 Absolute Neuts (auto) 43.6 H Absolute Lymphs (auto) 0.36 L Nucleated RBC % 0 Differential Comment SCANNED Diff Path Review May foll Platelet Estimate RBC Morphology Hypochromasia RARE Anisocytosis Ovalocytes RARE Stomatocytes RARE PT INR APTT Sodium 137 Potassium 4.6 Chloride 110 H Carbon Dioxide 17.0 L Anion Gap 10 BUN 18 Creatinine 0.64 Estim Creat Clear Calc 83.06 Est GFR (MDRD) Af Amer 122 Est GFR (MDRD) Non-Af 101 BUN/Creatinine Ratio 28.3 H Glucose 90 Lactic Acid Calcium 7.0 L Phosphorus Magnesium Total Bilirubin 1.10 H Direct Bilirubin AST 46 H ALT 18 Alkaline Phosphatase 518 H Ammonia Lactate Dehydrogenase Troponin I B-Natriuretic Peptide Total Protein 5.5 L Albumin 1.4 L Globulin 4.1 Albumin/Globulin Ratio 0.3 L Lipase Procalcitonin Urine Color Urine Clarity Urine pH Ur Specific Cos Cob Urine Protein Urine Glucose (UA) Urine Ketones Urine Occult Blood Urine Nitrite Urine Bilirubin Urine Urobilinogen Ur Leukocyte Esterase Urine RBC Urine WBC Ur Squamous Epith Cells Ur Transition Epith Cell Urine Bacteria Urine Mucus Fluid Source Fluid Color Fluid Appearance Fluid pH Fluid WBC Fluid RBC Fluid Tot Cell Count Fld Polynuclear WBCs # Fld Polynuclear WBCs % Fluid Mononuclear WBCs Fld Mononuclear WBCs % Fluid Neutrophils Fluid Lymphocytes Fluid Monocytes Fluid Macrophages Fld Mesothelial Cells Fl Pathologist Comment Fluid Glucose 62 Fluid Total Protein 1.9 Fluid LDH 518 Fluid Comment 2 MRSA (PCR) Miscellaneous Cytology 04/10/20 04/10/20 04/10/20 10:30 11:55 Unknown WBC RBC Hgb Hct MCV MCH MCHC RDW Std Deviation RDW Coeff of Bautista Plt Count MPV Immature Gran % (Auto) Neut % (Auto) Lymph % (Auto) Churchill % (Auto) Eos % (Auto) Baso % (Auto) Absolute Neuts (auto) Absolute Lymphs (auto) Nucleated RBC % Differential Comment Diff Path Review Platelet Estimate RBC Morphology Hypochromasia Anisocytosis Ovalocytes Stomatocytes PT INR APTT Sodium Potassium Chloride Carbon Dioxide Anion Gap BUN Creatinine Estim Creat Clear Calc Est GFR (MDRD) Af Amer Est GFR (MDRD) Non-Af BUN/Creatinine Ratio Glucose Lactic Acid Calcium Phosphorus Magnesium Total Bilirubin Direct Bilirubin AST ALT Alkaline Phosphatase Ammonia 36.0 H Lactate Dehydrogenase Troponin I B-Natriuretic Peptide Total Protein Albumin Globulin Albumin/Globulin Ratio Lipase Procalcitonin Urine Color Urine Clarity Urine pH Ur Specific Cos Cob Urine Protein Urine Glucose (UA) Urine Ketones Urine Occult Blood Urine Nitrite Urine Bilirubin Urine Urobilinogen Ur Leukocyte Esterase Urine RBC Urine WBC Ur Squamous Epith Cells Ur Transition Epith Cell Urine Bacteria Urine Mucus Fluid Source OTHER Fluid Color YELLOW Fluid Appearance CLEAR Fluid pH Pending Fluid WBC 2.502 Fluid RBC 72 Fluid Tot Cell Count 2.580 H Fld Polynuclear WBCs # 1.888 Fld Polynuclear WBCs % 75.5 Fluid Mononuclear WBCs 0.614 Fld Mononuclear WBCs % 24.5 Fluid Neutrophils 69 Fluid Lymphocytes 4 Fluid Monocytes 20 Fluid Macrophages 4 Fld Mesothelial Cells 3 Fl Pathologist Comment May follow Fluid Glucose Fluid Total Protein Fluid LDH Fluid Comment 2 TNP MRSA (PCR) Miscellaneous Cytology 04/10/20 Unknown WBC RBC Hgb Hct MCV MCH MCHC RDW Std Deviation RDW Coeff of Bautista Plt Count MPV Immature Gran % (Auto) Neut % (Auto) Lymph % (Auto) Churchill % (Auto) Eos % (Auto) Baso % (Auto) Absolute Neuts (auto) Absolute Lymphs (auto) Nucleated RBC % Differential Comment Diff Path Review Platelet Estimate RBC Morphology Hypochromasia Anisocytosis Ovalocytes Stomatocytes PT INR APTT Sodium Potassium Chloride Carbon Dioxide Anion Gap BUN Creatinine Estim Creat Clear Calc Est GFR (MDRD) Af Amer Est GFR (MDRD) Non-Af BUN/Creatinine Ratio Glucose Lactic Acid Calcium Phosphorus Magnesium Total Bilirubin Direct Bilirubin AST ALT Alkaline Phosphatase Ammonia Lactate Dehydrogenase Troponin I B-Natriuretic Peptide Total Protein Albumin Globulin Albumin/Globulin Ratio Lipase Procalcitonin Urine Color Urine Clarity Urine pH Ur Specific Cos Cob Urine Protein Urine Glucose (UA) Urine Ketones Urine Occult Blood Urine Nitrite Urine Bilirubin Urine Urobilinogen Ur Leukocyte Esterase Urine RBC Urine WBC Ur Squamous Epith Cells Ur Transition Epith Cell Urine Bacteria Urine Mucus Fluid Source Fluid Color Fluid Appearance Fluid pH Fluid WBC Fluid RBC Fluid Tot Cell Count Fld Polynuclear WBCs # Fld Polynuclear WBCs % Fluid Mononuclear WBCs Fld Mononuclear WBCs % Fluid Neutrophils Fluid Lymphocytes Fluid Monocytes Fluid Macrophages Fld Mesothelial Cells Fl Pathologist Comment Fluid Glucose Fluid Total Protein Fluid LDH Fluid Comment 2 MRSA (PCR) Miscellaneous Cytology Pending Microbiology 04/09/20 22:25 Urine, Clean Catch Urine Culture - Preliminary Culture exhibits no growth. 04/09/20 18:45 Blood Culture (Wb) - Anticubital Left Blood Culture - Preliminary 04/09/20 21:45 Mucosa - Nasopharyngeal Respiratory Syncytial Virus Ag Scrn - Final 04/09/20 21:45 Mucosa - Nasopharyngeal Respiratory Panel (PCR) - Final 04/09/20 22:45 Urine, Clean Catch Legionella Antigen - Final 04/09/20 22:45 Urine, Clean Catch Streptococcus pneumoniae Antigen (M - Final Streptococcus pneumonia Ag Clinical Impression(s) from Imaging Studies Paracentesis Ultrasound 04/10/20 09:56 IMPRESSION: Ultrasound guided paracentesis. 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 No thoracentesis 2. Improve medications for symptom control 3. Probable transfer to hospice later today 4. Will sign off from a critical care perspective IMPRESSIONS: 1. Severe sepsis with lactic acidosis secondary to perirectal abscess Patient does appear to have a perirectal abscess. Patient had refused any surgical interventions yesterday. Family is currently at the bedside and no interventions are currently planned. They want her to just be comfortable. Okay to discontinue antibiotics from my perspective as I do not believe these are adding any particular increase in comfort 2. Dyspnea Multiple etiologies for dyspnea. Discussed with family about doing a therapeutic thoracentesis, but after review the risks, benefits and alternatives, they would like to use medications to control symptoms and are not interested in any more procedures. 3. Metastatic colon cancer with elevated LFTs Patient with advanced colon cancer with multiple metastasis. Patient has liver and lung metastasis at this time. Anticipate hospice measures later today. 4. CKD stage III/mild hyperkalemia/chronic anemia Complicates care, management, recovery and prognosis. Continue with conservative therapy. No indication for transfusion at this time. Inpatient E&M: 77094 Subs Hosp L2
[2020-04-11] MEDS: Atropine Sulfate 1% 2 ml Bottle 4 DRP PO (08:46)
[2020-04-11 10:03] LABS: Pathologist Review Reviewed
[2020-04-11 10:03] LABS: Pathologist Review Reviewed
[2020-04-11] MEDS: Morphine 4 MG/ML Syringe IV (10:36)
--- NOTE | 2020-04-11 13:25 | PCM.CONS.B ---
Problem List (1) Rectal cancer Status: Chronic - Consult Date of Consult: 04/11/20 - Reason for Consult Diagnosis:? 1) Metastatic rectal cancer. ? HPI:?The patient is a 59 year-old female who has a family history of colon cancer. Her mother at age 49 from metastatic colon cancer. The patient had a colonoscopy a number of years ago. She had been seen by her primary care physician for complaints of feeling weak and tired. She was referred to an it applications developer. Based on the patient's complaint of weakness and fatigue and also at that point an increase in abdominal girth as well as a 30 pound weight loss in the last year, the patient underwent a workup that included blood counts and a colonoscopy. She was admitted to the hospital for this workup. ? Underwent a colonoscopy that revealed a large fungating semicircumferential rectal tumor extending from 3 cm to 15 cm from the anus. Biopsy demonstrated a well-differentiated adenocarcinoma. ? Staging workup included CT scan of the chest abdomen and pelvis. CT the chest revealed nonspecific scattered small pulmonary nodules as well as a large mass within the left thyroid lobe which was partially calcified causing mild tracheal deviation. It measured at least 4 cm in AP dimension but was not completely visualized on the chest CT scan. ? The report of the abdominal CT was not initial available but apparently she was found to have extensive liver metastases and underwent a biopsy for confirmation on 12/31/2013. The tissue retrieved demonstrated metastatic moderately differentiated adenocarcinoma with marked tumor necrosis compatible colorectal primary as evidenced by a positive immunostains for CDX-2 and CK20. Cytokeratin 7 was focally and weakly positive. ? She had been feeling fatigued and had noticed more dyspnea with exertion. She was taking an iron pill and it had caused mild constipation which was relieved with a stool softener. She denied difficulty moving her bowels. She denied rectal pain and pressure. She had observed no black or bloody stools prior to starting iron but had noticed her her stools since taking the iron. She had early satiety and increased abdominal girth with abdominal bloating. ? Previous therapy:? 1) FOLFOX x 9; panitumumab added cycle #6. Had hives with administration oxaliplatin cycle #9. 2) FOLFIRI with Vectibix. 3) RT to rectal primary completed 12/01. 4) FOLFIRI with Vectibix. 5) Lonsurf. Began end of April 2019. ? Current therapy: 1)?Stivarga. Patient last seen in the office on 03/13/2020. At that time she endorsed a declining appetite. We have discussed potential hospice care based on increased CEA and known tumor progression. She has an upcoming trip to [place] planned to see her grandson and wanted to make that trip before committing to hospice care. She has been under palliative care. Presented to the hospital with increasing lethargy. Noted to have significant leukocytosis and elevated lactate consistent with sepsis syndrome. She was mated to the ICU and started on broad-spectrum antibiotic treatment. CT abdomen pelvis demonstrated increasing ascites. She underwent palliative paracentesis yesterday. However her performance status has continued to decline. She is not arousable currently. Was in a lot of pain and agitated earlier. Four of her children here. Exam: No responsive to verbal and tactile stimuli. Agonal respirations. Assessment/Plan: In summary the patient is a 59 yo female who was diagnosed with metastatic rectal cancer in December of 2013 after presenting with fatigue, weakness and marked hepatomegaly. Had done extremely well with great disease control up until about 4-6 months ago when had further progression and became refractory to Lonsurf. Had slower progression on Stivarga. Admitted for sepsis syndrome and was found to have further progression. She is in a terminal state and hospice indicated. Discussed with children in room and they are agreeable to this plan. Will consult hospice for inpatient transfer.
--- NOTE | 2020-04-11 17:57 | DS.PCM_ITS ---
Discharge Date and Diagnosis - Problem List Patient Problems: Active and Suspected Problems Systemic inflammatory response syndrome (SIRS) (Acute) Bilateral pleural effusion (Acute) Ascites, malignant (Acute) Malignant neoplasm of rectum metastatic to liver (Acute) Lactic acidosis (Acute) Rectal abscess (Acute) Date of Admission: 04/09/20 Date of Discharge: 04/11/20 - Primary Discharge Diagnosis Acute Problems: Active Problems #1 septic shock-secondary to perirectal abscess and pneumonia from strep pneumoniae #2 malignant ascites #3 metastatic rectal cancer-lung and liver metastases #4 chronic kidney disease stage III #5 dyspnea secondary to malignant ascites with bilateral pleural effusions #6 cognitive impairment secondary to metabolic encephalopathy #7 severe protein and caloric malnutrition #8 strep pneumoniae pneumonia - Secondary Discharge Diagnosis Chronic Problems: Chronic Problems Rectal cancer (Chronic) Metastatic cancer (Chronic) Hospital Course and Treatment Operations: None Procedures: Paracentesis Summary of Care Provided: The patient is a 59 year old F was seen in the emergency room at [facility] with a chief complaint of diarrhea with severe weakness. Patient has a history of terminal rectal cancer with metastatic spread and is undergoing chronic chemo. Work-up in the emergency room included labs which showed an elevated lactic acid concerning for septic shock, . A chest CTA was performed which showed no evidence of pulmonary embolism but there were multiple pulmonary nodules and metastases as well as hilar adenopathy and hepatic masses were noted. There was a left larger than right pleural effusion. Ascites was noted to be present also. Patient was admitted to [place] [address], she was placed on IV antibiotics and seen in consultation by critical care, abdominal pelvis CT was performed which showed evidence of a perirectal abscess, general surgery was consulted and did not feel the patient was a surgical candidate. Patient underwent a paracentesis and 1100 cc of fluid was removed. Patient's urine antigen was positive for strep pneumoniae indicating a probable pneumonic process. Patient's condition worsened during her hospital stay and discussions were carried out with the patient and the patient's oncologist and finally the patient agreed to hospice care and was transferred to the hospice care inpatient facility on 04/11/2020. Patient was transferred in terminal condition. On 04/11/2020, patient was seen and examined: On examination she appeared severely ill and moribund, she was lethargic and somnolent and had shallow respirations. Vital signs as documented. Skin warm and dry and without overt rashes. Neck without JVD, thyroid appears normal, trachea is midline, neck is supple. Lungs clear, decreased air movement was noted. Heart exam notable for regular rhythm, normal sounds and absence of murmurs, rubs or gallops. Abdomen unremarkable and without evidence of organomegaly, masses, or abdominal aortic enlargement, bowel sounds are present in all 4 quadrants, no abdominal tendernes s was noted. Extremities nonedematous, no cyanosis was noted, no clubbing was noted. Neuro: Cranial nerves II through XII are grossly intact, no focal motor deficits were noted, sensation to light touch and pinprick is intact, motor exam 5/5 throughout. Psych: Patient is alert and oriented x3, she does not appear anxious or depressed, she does not appear agitated. Patient was transferred to the inpatient hospice care facility on 04/11/2020 in terminal condition. Patient Problems: Active and Suspected Problems Systemic inflammatory response syndrome (SIRS) (Acute) Bilateral pleural effusion (Acute) Ascites, malignant (Acute) Malignant neoplasm of rectum metastatic to liver (Acute) Lactic acidosis (Acute) Rectal abscess (Acute) - Physical Exam Vitals/I&O's: Vital Signs Temp Pulse Resp BP Pulse Ox 98.4 F 127 H 30 H 101/63 100 04/11/20 08:00 04/11/20 11:00 04/11/20 11:00 04/11/20 11:00 04/11/20 11:00 Oxygen Flow Rate (L/min) 2 Oxygen Delivery Method [3] Room Air Oxygen Delivery Method [2] Room Air Oxygen Delivery Method [1 ( Room Air Initial Baseline)] Oxygen Delivery Method Nasal Cannula Weight: 84.3 kg Body Mass Index (BMI) 29.2 Intake and Output for Last 24 Hours 04/09/20 04/10/20 04/11/20 23:59 23:59 23:59 Intake Total 3390 / 3390 4982.08 / 4982.08 365 / 365 Output Total 150 / 150 2175 / 2275 200 / 200 Balance 3240 / 3240 2807.08 / 2707.08 165 / 165 Microbiology Past 72 Hours 04/10/20 Unknown Fluid - Paracentesis (Abd) Gram Stain - Final 04/10/20 Unknown Fluid - Paracentesis (Abd) Body Fluid Culture - Preliminary No growth-Final to follow 04/09/20 22:25 Urine, Clean Catch Urine Culture - Final Mixed Gram Positive Organisms 04/09/20 18:45 Blood Culture (Wb) - Anticubital Left Blood Culture - Preliminary 04/09/20 21:45 Mucosa - Nasopharyngeal Respiratory Syncytial Virus Ag Scrn - Final 04/09/20 21:45 Mucosa - Nasopharyngeal Respiratory Panel (PCR) - Final 04/09/20 22:45 Urine, Clean Catch Legionella Antigen - Final 04/09/20 22:45 Urine, Clean Catch Streptococcus pneumoniae Antigen (M - Final Streptococcus pneumonia Ag Laboratory Results 04/09/20 17:50: Diff Path Review Reviewed 04/10/20 04:15: Diff Path Review Reviewed Home Medications: Medications to take at Discharge Multivitamins,Therapeutic [Multivitamin] 1 tab PO DAILY 01/12/14 Dicyclomine HCl [Bentyl] 10 mg PO Q6H PRN 04/09/20 Oxycodone HCl/Acetaminophen [Percocet 5/325] 1 tab PO Q6H PRN PRN 04/09/20 Regorafenib [Stivarga] 40 mg PO DAILY 04/09/20 Primary Care Physician: Care Physician,No Primary [Primary Care Provider] - Disposition: Hospice Medical Facility Minutes spent on discharge:: 32 Patient Condition:: Stable Medical Necessity - Tobacco Use Smoking Status: Never smoker Tobacco Use: Non-smoker Meaningful Use Info Meaningful Use Diagnoses (Choose all that apply): None applicable Inpatient E&M: 81081 Disch Hosp
[2020-04-12 12:50] LABS: Pathologist Comment/Body Fluid Reviewed
[2020-04-14 08:28] LABS: pH, Body Fluid 11254 7.1 (Not Estab.)
== END 2020-04-11 11:24 | disposition hospice, inpatient (51) | DRG 871 ==
LOC: ED 20:10 → ICU 20:31
PROVIDERS: Admitting Provider Family Medicine; Emergency Provider Emergency Medicine; Visit Provider Internal Medicine
DX: A41.9 Sepsis, unspecified organism (principal); R65.21 Severe sepsis with septic shock; G93.41 Metabolic encephalopathy; E43 Unspecified severe protein-calorie malnutrition; J13 Pneumonia due to Streptococcus pneumoniae; K61.1 Rectal abscess; R18.0 Malignant ascites; C78.7 Secondary malignant neoplasm of liver and intrahepatic bile duct; C78.00 Secondary malignant neoplasm of unspecified lung; C20 Malignant neoplasm of rectum; E87.2 Acidosis; N18.30 Chronic kidney disease, stage 3 unspecified; E87.5 Hyperkalemia; E27.9 Disorder of adrenal gland, unspecified; D64.9 Anemia, unspecified; Z68.29 Body mass index [BMI] 29.0-29.9, adult
CPT/HCPCS: 49083; 71045; 71275; 74176; 80048; 80053; 80076; 81001; 82140; 82945; 83605; 83615; 83690; 83735; 83880; 83986; 84100; 84145; 84156; 84157; 84484; 85025; 85610; 85730; 87040; 87070; 87075; 87077; 87086; 87088; 87186; 87205; 87426; 87449; 87633; 87641; 88108; 88305; 88313; 88341; 88342; 89050; 93005; 94640; 97802; 99284; J7030; J7040; J7050; Q9967; A4216; J0696; J1940; J2405